=== PATIENT | female | born 1940 | race Caucasian/White ===

== ENCOUNTER 2016-08-23 12:49 | Emergency (ER) | payer MEDICARE, BC ==
[2016-08-23 13:05] VITALS: BP 123/62; PULSE 50; RESP 20; TEMP 98.2
--- NOTE | 2016-08-23 13:28 | ED ---
General Adult HPI - General Chief complaint: Eye Problems Stated complaint: eye issues Time Seen by Provider: 08/23/16 13:10 Source: patient, RN notes reviewed Mode of arrival: ambulatory Limitations: no limitations - History of Present Illness Initial comments: This is a 76-year-old female presents with a rash to the face. Daughter who is also present in the room states that the patient noticed some redness below both eyes for about a week and on , 08/19/2016 the rash got worse and became itchy. Daughter states she took the patient to an urgent care and she is placed on hydrocortisone cream, oral Claritin, tobramycin eyedrops and a course of Keflex. Daughter states she's been taking these things for 5 days but nothing has helped. Patient denies any pain in the eyes or visual changes. Daughter states she has noticed some slight drooping of the lower right eyelid but no facial drooping, dysphagia or weakness. Daughter denies any fevers/chills. Patient denies any headache, sore throat, congestion, otalgia or rhinorrhea. Patient denies any history of autoimmune disorders and denies that this has ever happened to her before. Patient denies any new medications. Patient denies any recent shortness breath, chest pain, abdominal pain, nausea/ vomiting/diarrhea, back pain, numbness, tingling, hematuria, or visual changes , or any other complaints. - Related Data Home Medications Medication Instructions Recorded Confirmed FLUoxetine HCL 40 mg PO DAILY 10/14/14 11/13/15 Levothyroxine Sodium [Synthroid] 88 mcg PO [id number] 10/14/14 11/13/15 [place] Carbonate 300 mg PO DAILY 10/14/14 11/13/15 Atorvastatin [Lipitor] 40 mg PO DAILY 01/06/15 11/13/15 Donepezil [Aricept] 5 mg PO HS 01/06/15 11/13/15 Levothyroxine Sodium [Synthroid] 176 mcg PO ALMANZA 10/30/15 11/13/15 Previous Rx's Medication Instructions Recorded Amoxicillin/Potassium Clav 1 tab PO Q12HR #20 tab 10/30/15 [Augmentin 875-125 Tablet] Cephalexin [Keflex] 500 mg PO Q12HR 7 Days 08/23/16 Loratadine [Claritin] 10 mg PO DAILY 10 Days 08/23/16 Ranitidine HCl [Zantac] 150 mg PO BID 10 Days 08/23/16 predniSONE 40 mg PO DAILY 5 Days 08/23/16 Allergies Allergy/AdvReac Type Severity Reaction Status Date / Time nickel Allergy Rash/Hives Verified 08/23/16 13:05 Review of Systems ROS Statement: Those systems with pertinent positive or pertinent negative responses have been documented in the HPI. ROS Other: All systems not noted in ROS Statement are negative. Past Medical History Past Medical History: Dementia, Hyperlipidemia, Thyroid Disorder History of Any Multi-Drug Resistant Organisms: None Reported Past Surgical History: Back Surgery, Joint Replacement Additional Past Surgical History / Comment(s): knee replacment, ovary removed Past Psychological History: Bipolar Smoking Status: Current every day smoker Past Alcohol Use History: Occasional Past Drug Use History: None Reported General Exam - General Exam Comments Initial Comments: General: The patient is awake and alert, in no distress, and does not appear acutely ill. Eye: There is ectropion to the right lower eyelid. Pupils are equal, round and reactive to light, extra-ocular movements are intact. No nystagmus. There is normal conjunctiva bilaterally. No signs of icterus. Ears: TMs pink and pearly with intact cone of light bilaterally. Normal external ear canals Nose: Nasal turbinates pink and moist Mouth and throat: There are moist mucous membranes and no oral lesions. Neck: The neck is supple, there is no tenderness or JVD. Cardiovascular: There is a regular rate and rhythm. No murmur, rub or gallop is appreciated. Respiratory: Lungs are clear to auscultation, respirations are non-labored, breath sounds are equal. No wheezes, stridor, rales, or rhonchi. Musculoskeletal: Normal ROM, no tenderness. Strength 5/5. Sensation intact. Radial pulses equal bilaterally 2+. Neurological: A&O x 3. CN II-XII intact, There are no obvious motor or sensory deficits. Coordination appears grossly intact. Speech is normal. Skin: There are erythematous, plaque-like areas below the patient's bilateral eyes extending over the bridge of the nose. Skin is warm and dry. Psychiatric: Cooperative, appropriate mood & affect, normal judgment. Limitations: no limitations Course Vital Signs 08/23/16 13:01 Temperature 98.2 F Pulse Rate 50 L Respiratory 20 Rate Blood Pressure 123/62 O2 Sat by Pulse 95 Oximetry Medical Decision Making - Medical Decision Making This is a 76-year-old female presents with a rash to the face. On physical exam patient is well-appearing and afebrile in the EC. There is ectropion to the right lower eyelid. There are erythematous, plaque-like areas below the patient's bilateral eyes extending over the bridge of the nose. I discussed this case with attending physician Dr. Quinones who also examined the patient. I discussed contact dermatitis with the patient and her daughter. I discussed that patient will be put on prednisone 40 mg 5 days, Claritin 10 mg 10 days, Keflex 7 days and Zantac twice a day for 10 days. I discussed the patient should avoid hot water, soaps or any chemicals or lotions on the face. I discussed the patient should follow-up with dermatology. I discussed return parameters. Discussed that patient should follow up with PCP in one to 2 days or return to the EC for any worsening symptoms or for any further concerns. Patient was receptive to this plan and patient will be discharged home. I discussed this case with attending physician Dr. Quinones who agrees the plan as stated above. Disposition Clinical Impression: Contact dermatitis Disposition: HOME SELF-CARE Condition: Good Instructions: Contact Dermatitis (ED) Additional Instructions: Please use prednisone, Keflex, Claritin and Zantac as prescribed. Please avoid hot [place], soaps any other chemicals on the face. Please follow-up with dermatology in the next 1-2 days. Please use medication as discussed. Please follow-up with family doctor in the next 2 days. Please return to emergency room if the symptoms increase or worsen or for any other concerns. Prescriptions: Cephalexin [Keflex] 500 mg PO Q12HR 7 Days Loratadine [Claritin] 10 mg PO DAILY 10 Days Ranitidine HCl [Zantac] 150 mg PO BID 10 Days predniSONE 40 mg PO DAILY 5 Days Referrals: None,Stated [Primary Care Provider] - 1-2 days Yesi Delgado MD [STAFF PHYSICIAN] - 1-2 days Umberto Delgado MD [STAFF PHYSICIAN] - 1-2 days Time of Disposition: 14:09
== END 2016-08-23 14:10 | disposition home or self-care (01) ==
LOC: EC 12:49
DX: L25.9 Unspecified contact dermatitis, unspecified cause (principal); Z91.048 Other nonmedicinal substance allergy status; E78.5 Hyperlipidemia, unspecified; E07.9 Disorder of thyroid, unspecified; F03.90 Unspecified dementia, unspecified severity, without behavioral disturbance, psychotic disturbance, mood disturbance, and anxiety; F31.9 Bipolar disorder, unspecified; F17.200 Nicotine dependence, unspecified, uncomplicated; Z79.899 Other long term (current) drug therapy
CPT/HCPCS: 99283

== ENCOUNTER 2016-11-04 19:25 | Emergency (ER) | payer MEDICARE, BC ==
[2016-11-04 19:42] VITALS: TEMP 98.1
--- NOTE | 2016-11-04 20:56 | ED ---
Extremity Problem HPI - General Chief complaint: Extremity Problem,Nontraumatic Stated complaint: Poss bug bite/Ankle Time Seen by Provider: 11/04/16 20:36 Source: patient Mode of arrival: ambulatory Limitations: no limitations - History of Present Illness Initial comments: Physical 76-year-old female to history of depression and bipolar and hyperlipidemia who presents here department for right lower extremity swelling. The patient states that she did not notice it however when the daughter came over today she noticed a small red lesion on her right ankle and then also swelling although after her knee. The patient denies any history DVT. No recent travel. [facility] her a dose of Rocephin and sent her here for evaluation. The patient denies any shortness of breath or chest pain. She denies any fevers or chills. She denies any other complaints. - Related Data Home Medications Medication Instructions Recorded Confirmed FLUoxetine HCL 40 mg PO DAILY 10/14/14 11/04/16 Levothyroxine Sodium [Synthroid] 88 mcg PO DAILY 10/14/14 11/04/16 [place] Carbonate 300 mg PO DAILY 10/14/14 11/04/16 Atorvastatin [Lipitor] 40 mg PO DAILY 01/06/15 11/04/16 Donepezil [Aricept] 10 mg PO DAILY 11/04/16 11/04/16 Previous Rx's Medication Instructions Recorded Cephalexin [Keflex] 500 mg PO Q12HR #14 cap 11/04/16 Allergies Allergy/AdvReac Type Severity Reaction Status Date / Time nickel Allergy Rash/Hives Verified 11/04/16 20:55 Review of Systems ROS Statement: Those systems with pertinent positive or pertinent negative responses have been documented in the HPI. ROS Other: All systems not noted in ROS Statement are negative. Past Medical History Past Medical History: Dementia, Hyperlipidemia, Thyroid Disorder History of Any Multi-Drug Resistant Organisms: None Reported Past Surgical History: Back Surgery, Joint Replacement Additional Past Surgical History / Comment(s): knee replacment, ovary removed Past Psychological History: Bipolar Smoking Status: Current every day smoker Past Alcohol Use History: Occasional Past Drug Use History: None Reported General Exam - General Exam Comments Initial Comments: Constitutional: Awake alert Appears comfortable Head: Normocephalic atraumatic Eyes: no conjunctival injection No scleral icterus EOMI Neck: No JVD Supple Heart: Regular rate rhythm normal S1-S2 no murmurs Lungs: Clear to auscultation bilaterally No wheezing No rales Abdomen: Soft nondistended nontender Extremities: Pitting edema to the right lower extremity extending up to the knee , left lower extremity is normal, there is an erythematous area to the right lateral ankle with a small very superficial abscess that is spontaneously draining purulent fluid DP pulses intact Radial pulses intact Neuro: A&Ox3 No focal neurologic deficits Psych: Appropriate mood and affect Limitations: no limitations Course Vital Signs 11/04/16 19:38 Temperature 98.1 F Pulse Rate 58 L Respiratory 16 Rate Blood Pressure 122/62 O2 Sat by Pulse 97 Oximetry Medical Decision Making - Medical Decision Making This is a 76-year-old female who presented for right leg swelling and redness. The patient had an Doppler of the lower extremity which did not reveal DVT. She has 5 consistent with a small area of cellulitis with overlying superficial abscess that is spontaneously draining. She will be started on Keflex twice a day and follow-up with her primary doctor. She returned she has worsening symptoms or questions were answered. Disposition Clinical Impression: Cellulitis and abscess of right leg Disposition: HOME SELF-CARE Instructions: Cellulitis (ED) Prescriptions: Cephalexin [Keflex] 500 mg PO Q12HR #14 cap Referrals: Nick Brown MD [Primary Care Provider] - 1-2 days
--- NOTE | 2016-11-04 21:51 | US ---
EXAMINATION TYPE: US venous doppler duplex LE RT DATE OF EXAM: 11/04/2016 9:42 PM COMPARISON: NONE CLINICAL HISTORY: Edema right ankle SIDE PERFORMED: Right TECHNIQUE: The lower extremity deep venous system is examined utilizing real time linear array sonog yifan with graded compression, doppler sonography and color-flow sonography. VESSELS IMAGED: External Iliac Vein (EIV) Common Femoral Vein Deep Femoral Vein Greater Saphenous Vein * Femoral Vein Popliteal Vein Small Saphenous Vein * Proximal Calf Veins (* superficial vessels) Right Leg: Negative for DVT IMPRESSION: No evident deep venous thrombosis at or above the right knee.
[2016-11-04 22:07] VITALS: BP 108/56; PULSE 70; RESP 20
== END 2016-11-04 22:05 | disposition home or self-care (01) ==
LOC: EC 19:25
DX: L03.115 Cellulitis of right lower limb (principal); L02.415 Cutaneous abscess of right lower limb; R60.0 Localized edema; E78.5 Hyperlipidemia, unspecified; E07.9 Disorder of thyroid, unspecified; F31.9 Bipolar disorder, unspecified; F03.90 Unspecified dementia, unspecified severity, without behavioral disturbance, psychotic disturbance, mood disturbance, and anxiety; F17.200 Nicotine dependence, unspecified, uncomplicated; Z79.899 Other long term (current) drug therapy; Z91.09 Other allergy status, other than to drugs and biological substances
CPT/HCPCS: 99283

== ENCOUNTER 2017-08-14 12:17 | Observation (INO) | payer MEDICARE, BC ==
[2017-08-14] MEDS ORDERED: SODIUM CHLORIDE 0.9% 500 ML IV STA (12:36)
[2017-08-14] MEDS ORDERED: DIAZEPAM 5 MG/ML 2 ML INJ IVP STA (12:36)
[2017-08-14] MEDS ORDERED: MECLIZINE 25 MG TAB PO STA (12:36)
--- NOTE | 2017-08-14 12:46 | ED ---
General Adult HPI - General Chief complaint: Dizziness Stated complaint: dizziness Time Seen by Provider: 08/14/17 12:20 Source: patient, EMS, RN notes reviewed Mode of arrival: EMS Limitations: altered mental status - History of Present Illness Initial comments: This is a 77-year-old female who comes in because she was dizzy in the car with her son. Patient doesn't remember the she because of her significant dementia. According to the report patient was so dizzy she had a hold onto the door while in the car. According to the report patient also had some slurred speech which seems to have resolved. She denies headache patient denies any numbness weakness. Patient denies chest pain palpitations difficulty breathing or shortness of breath. Patient denies abdominal pain patient denies nausea vomiting diarrhea. Patient states she has no pain or discomfort now but she does feel off balance and the bed is why she is holding on to the railings - Related Data Home Medications Medication Instructions Recorded Confirmed FLUoxetine HCL 40 mg PO DAILY 10/14/14 08/14/17 [place] Carbonate 300 mg PO DAILY 10/14/14 08/14/17 Atorvastatin [Lipitor] 40 mg PO DAILY 01/06/15 08/14/17 Donepezil [Aricept] 10 mg PO DAILY 11/04/16 08/14/17 Levothyroxine Sodium [Synthroid] 125 mcg PO DAILY 08/14/17 08/14/17 Allergies Allergy/AdvReac Type Severity Reaction Status Date / Time nickel Allergy Rash/Hives Verified 08/14/17 13:28 Review of Systems ROS Statement: Those systems with pertinent positive or pertinent negative responses have been documented in the HPI. ROS Other: All systems not noted in ROS Statement are negative. Past Medical History Past Medical History: Dementia, Hyperlipidemia, Thyroid Disorder History of Any Multi-Drug Resistant Organisms: None Reported Past Surgical History: Back Surgery, Joint Replacement Additional Past Surgical History / Comment(s): knee replacment, ovary removed Past Psychological History: Bipolar Smoking Status: Current every day smoker Past Alcohol Use History: Occasional Past Drug Use History: None Reported General Exam - General Exam Comments Initial Comments: GENERAL: Patient is well-developed and well-nourished. Patient is nontoxic and well- hydrated and is in mild distress. ENT: Neck is soft and supple. No significant lymphadenopathy is noted. Oropharynx is clear. Moist mucous membranes. Neck has full range of motion without eliciting any pain. EYES: The sclera were anicteric and conjunctiva were pink and moist. Extraocular movements were intact and pupils were equal round and reactive to light. Eyelids were unremarkable. PULMONARY: Unlabored respirations. Good breath sounds bilaterally. No audible rales rhonchi or wheezing was noted. CARDIOVASCULAR: There is a regular rate and rhythm without any murmurs gallops or rubs. ABDOMEN: Soft and nontender with normal bowel sounds. SKIN: Skin is clear with no lesions or rashes and otherwise unremarkable. NEUROLOGIC: Patient is alert and oriented 2. Cranial nerves II through XII are grossly intact. Motor and sensory are also intact. Normal speech, volume and content. Symmetrical smile. Cerebellar testing is equal bilaterally MUSCULOSKELETAL: Normal extremities with adequate strength and full range of motion. LYMPHATICS: No significant lymphadenopathy is noted PSYCHIATRIC: Normal psychiatric evaluation. Limitations: altered mental status Course Vital Signs 08/14/17 08/14/17 12:23 13:00 Temperature 98.3 F Pulse Rate 61 55 L Respiratory 20 20 Rate Blood Pressure 136/59 128/60 O2 Sat by Pulse 96 97 Oximetry Medical Decision Making - Medical Decision Making Patient's son arrived and stated that the patient was not having any slurred speech she was having expressive aphasia during this episode. Son states the patient now is speaking clearly. Patient's chest x-ray shows no acute abnormality. Patient's computed tomography scan of the brain shows no acute abnormality. I spoke with Dr. Huffman read to accept admission admitted the patient I ordered MRIs I consult the neurology per her instructions. - Lab Data Result diagrams: 08/14/17 12:22 08/14/17 12:22 Lab Results 08/14/17 08/14/17 08/14/17 Range/Units 12:22 12:22 12:22 WBC 6.6 (3.8-10.6) k/uL RBC 4.85 (3.80-5.40) m/uL Hgb 14.0 (11.4-16.0) gm/dL Hct 44.0 (34.0-46.0) % MCV 90.8 (80.0-100.0) fL MCH 28.9 (25.0-35.0) pg MCHC 31.9 (31.0-37.0) g/dL RDW 13.0 (11.5-15.5) % Plt Count 290 (150-450) k/uL Neutrophils % 65 % Lymphocytes % 26 % Monocytes % 5 % Eosinophils % 3 % Basophils % 1 % Neutrophils # 4.3 (1.3-7.7) k/uL Lymphocytes # 1.7 (1.0-4.8) k/uL Monocytes # 0.3 (0-1.0) k/uL Eosinophils # 0.2 (0-0.7) k/uL Basophils # 0.0 (0-0.2) k/uL PT (9.0-12.0) sec INR (<1.2) APTT (22.0-30.0) sec Sodium 140 (137-145) mmol/L Potassium 4.4 (3.5-5.1) mmol/L Chloride 105 (98-107) mmol/L Carbon Dioxide 24 (22-30) mmol/L Anion Gap 11 mmol/L BUN 20 H (7-17) mg/dL Creatinine 0.60 (0.52-1.04) mg/dL Est GFR (CKD-EPI)AfAm >90 (>60 ml/min/1.73 sqM) Est GFR (CKD-EPI)NonAf 88 (>60 ml/min/1.73 sqM) Glucose 73 L (74-99) mg/dL Calcium 10.0 (8.4-10.2) mg/dL Magnesium 2.1 (1.6-2.3) mg/dL Total Bilirubin 0.7 (0.2-1.3) mg/dL AST 24 (14-36) U/L ALT 29 (9-52) U/L Alkaline Phosphatase 103 (38-126) U/L Total Creatine Kinase 152 H (30-135) U/L CK-MB (CK-2) 3.1 H* (0.0-2.4) ng/mL CK-MB (CK-2) Rel Index 2.0 Troponin I <0.012 (0.000-0.034) ng/mL Total Protein 6.9 (6.3-8.2) g/dL Albumin 4.2 (3.5-5.0) g/dL 08/14/17 Range/Units 12:22 WBC (3.8-10.6) k/uL RBC (3.80-5.40) m/uL Hgb (11.4-16.0) gm/dL Hct (34.0-46.0) % MCV (80.0-100.0) fL MCH (25.0-35.0) pg MCHC (31.0-37.0) g/dL RDW (11.5-15.5) % Plt Count (150-450) k/uL Neutrophils % % Lymphocytes % % Monocytes % % Eosinophils % % Basophils % % Neutrophils # (1.3-7.7) k/uL Lymphocytes # (1.0-4.8) k/uL Monocytes # (0-1.0) k/uL Eosinophils # (0-0.7) k/uL Basophils # (0-0.2) k/uL PT 10.1 (9.0-12.0) sec INR 1.0 (<1.2) APTT 27.2 (22.0-30.0) sec Sodium (137-145) mmol/L Potassium (3.5-5.1) mmol/L Chloride (98-107) mmol/L Carbon Dioxide (22-30) mmol/L Anion Gap mmol/L BUN (7-17) mg/dL Creatinine (0.52-1.04) mg/dL Est GFR (CKD-EPI)AfAm (>60 ml/min/1.73 sqM) Est GFR (CKD-EPI)NonAf (>60 ml/min/1.73 sqM) Glucose (74-99) mg/dL Calcium (8.4-10.2) mg/dL Magnesium (1.6-2.3) mg/dL Total Bilirubin (0.2-1.3) mg/dL AST (14-36) U/L ALT (9-52) U/L Alkaline Phosphatase (38-126) U/L Total Creatine Kinase (30-135) U/L CK-MB (CK-2) (0.0-2.4) ng/mL CK-MB (CK-2) Rel Index Troponin I (0.000-0.034) ng/mL Total Protein (6.3-8.2) g/dL Albumin (3.5-5.0) g/dL Disposition Clinical Impression: TIA (transient ischemic attack), Vertigo Disposition: ADMITTED IP TO THIS HOSP Referrals: Nick Brown MD [Primary Care Provider] - 1-2 days Time of Disposition: 15:09
[2017-08-14 12:51] LABS: Basophils % (A) 1 %; Eosinophils # (A) 0.2 k/uL (0-0.7); Eosinophils % (A) 3 %; Lymphocytes # (A) 1.7 k/uL (1.0-4.8); Lymphocytes % (A) 26 %; MCH 28.9 pg (25.0-35.0); MCHC 31.9 g/dL (31.0-37.0); MCV 90.8 fL (80.0-100.0); Mean Platelet Volume 8.3; Monocytes # (A) 0.3 k/uL (0-1.0); Monocytes % (A) 5 %; Neutrophils # (A) 4.3 k/uL (1.3-7.7); Neutrophils % (A) 65 %; Platelet Count 290 k/uL (150-450); RBC 4.85 m/uL (3.80-5.40); WBC 6.6 k/uL (3.8-10.6)
[2017-08-14 13:01] LABS: Partial Thromboplastin Time 27.2 sec (22.0-30.0); Prothrombin Time 10.1 sec (9.0-12.0)
[2017-08-14 13:02] LABS: ALT 29 U/L (9-52); AST 24 U/L (14-36); Albumin 4.2 g/dL (3.5-5.0); Alkaline Phosphatase 103 U/L (38-126); Anion Gap 11 mmol/L; Blood Urea Nitrogen 20 mg/dL (7-17); Carbon Dioxide 24 mmol/L (22-30); Chloride 105 mmol/L (98-107); Glucose 73 mg/dL (74-99); Magnesium 2.1 mg/dL (1.6-2.3); Potassium 4.4 mmol/L (3.5-5.1); Sodium 140 mmol/L (137-145); Total Bilirubin 0.7 mg/dL (0.2-1.3); Total Protein 6.9 g/dL (6.3-8.2)
[2017-08-14 13:10] LABS: Creatine Kinase 152 U/L (30-135)
[2017-08-14 13:23] LABS: Troponin I <0.012 ng/mL (0.000-0.034)
[2017-08-14 13:25] LABS: Creatine Kinase MB 3.1 ng/mL (0.0-2.4)
--- NOTE | 2017-08-14 14:22 | CT ---
EXAMINATION: CT brain wo con DATE AND TIME: 08/14/2017 1:00 PM ORDERING PROVIDER: Tavon Holman MD CLINICAL INDICATION: Pain TECHNIQUE: Standard departmental protocol. DLP 1027 mGy-cm COMPARISON: 01/06/2015 DESCRIPTION: The calvarium is intact. There is no intracranial hemorrhage. There is no mass or mass e ffect. There is no definite new attenuation defect. Remainder of the intra-axial and extra-axial comp artment examination is unremarkable. The paranasal sinuses, middle ear cavities, and mastoid sinus ai r cells are clear. The orbits are intact. IMPRESSION: NO ACUTE PROCESS.
--- NOTE | 2017-08-14 14:37 | XR ---
EXAMINATION TYPE: XR chest 2V DATE OF EXAM: 08/14/2017 HISTORY: Chest Pain. REFERENCE: Previous study dated 01/06/2015. FINDINGS: The lungs are overinflated. Heart size upper limits of normal. The lungs are clear. Pleural spaces are clear. IMPRESSION: 1. COPD. 2. BORDERLINE CARDIOMEGALY.
[2017-08-14 20:20] VITALS: BMI 25.6
[2017-08-14] MEDS: ASPIRIN 81 MG PO SCH (23:08)
[2017-08-15 02:47] LABS: Cholesterol 162 mg/dL (<200); HDL Cholesterol 57 mg/dL (40-60); LDL Cholesterol,Calculated 65 mg/dL (0-99); Triglycerides 202 mg/dL (<150)
[2017-08-15 04:20] VITALS: RESP 16
[2017-08-15] MEDS ORDERED: LEVOTHYROXINE 125 MCG TAB PO SCH (06:30)
[2017-08-15] MEDS ORDERED: LITHIUM CARBONATE 300 MG CAP PO SCH (09:00)
[2017-08-15] MEDS ORDERED: DONEPEZIL 10 MG TAB PO SCH (09:00)
[2017-08-15] MEDS ORDERED: FLUoxetine HCL 20 MG CAP PO SCH (09:00)
[2017-08-15] MEDS ORDERED: ATORVASTATIN 40 MG TAB PO SCH (09:00)
[2017-08-15] MEDS: ASPIRIN 81 MG PO SCH (11:13)
--- NOTE | 2017-08-15 14:25 | MR ---
EXAMINATION TYPE: MR angio head wo con DATE OF EXAM: 08/15/2017 COMPARISON: NONE HISTORY: TIA TECHNIQUE: Utilizing 3-D [id number] intracranial MRA of the [place] was performed. FINDINGS: The vertebrobasilar and carotid systems are patent. There is no sizable aneurysm or vascular malform ation. Left vertebral artery is dominant. Posterior cerebral arteries originate from the internal ci rculation on the left. IMPRESSION: 1. No evidence of vascular malformation or sizable aneurysm.
--- NOTE | 2017-08-15 14:31 | MR ---
EXAMINATION TYPE: MR brain wo/w con DATE OF EXAM: 08/15/2017 COMPARISON: NONE HISTORY: TIA TECHNIQUE: Multiplanar, multisequence images of the brain and brainstem is performed without and with IV contras t, utilizing 7 mL intravenous Gadavist . FINDINGS: Diffusion weighted images demonstrate no evidence of a recent infarct or other diffusion ab normality. There is moderate generalized degenerative change. Abnormal signal noted in the basal gang nael suggestive of remote lacunar infarct. There is a partially empty sella turcica. There is no midline shift or mass effect. White matter: There is confluent and numerous areas of abnormal signal the white matter. No lesions perpendicular v entricular system. The largest measures 8 mm within the right parietal white matter. No enhancing les ions. Approximately 15 lesions seen. No callosal lesions. IMPRESSION: 1. Degenerative and nonspecific white matter changes most typical remote microvascular ischemia. 2. No evidence of acute ischemia
--- NOTE | 2017-08-15 15:30 | P.CONS ---
History of Present Illness - Reason for Consult Consult date: 08/15/17 TIA - Chief Complaint TIA - History of Present Illness Is a pleasant 77-year-old female being evaluated by the neurology service for possible TIA. She was traveling in with her son in the car and started to become dizzy. She described some lightheadedness and some vertigo. Her son also noticed that her speech was slurred. She denied any recent illness , headache, lateralizing weakness. She was brought to [facility] emergency room. By that time her slurred speech resolved. She remained a little bit off balance. CT of the head showed no acute intracranial abnormalities. MRA of the brain showed no vascular abnormalities. MRI showed nonspecific white matter changes most likely microvascular ischemia. There was no evidence of acute ischemia. Was no evidence of mass. There were no enhancing lesions. It's time my exam she is being transferred to a wheelchair and taken down to have an EEG. A carotid Doppler has also been ordered. She was on no anticoagulation has been started on aspirin 325 mg her triglycerides are 200 to a cholesterol 162 LDL of 65 and HDL of 57. Review of Systems All systems: negative Constitutional: Reports as per HPI Past Medical History Past Medical History: Dementia, Hyperlipidemia, Thyroid Disorder History of Any Multi-Drug Resistant Organisms: None Reported Past Surgical History: Back Surgery, Joint Replacement Additional Past Surgical History / Comment(s): knee replacment, ovary removed Past Anesthesia/Blood Transfusion Reactions: No Reported Reaction Past Psychological History: Bipolar Smoking Status: Current every day smoker Past Alcohol Use History: Occasional Past Drug Use History: None Reported - Past Family History Mother History Unknown: Yes Medications and Allergies Home Medications Medication Instructions Recorded Confirmed Type FLUoxetine HCL 40 mg PO DAILY 10/14/14 08/14/17 History [place] Carbonate 300 mg PO DAILY 10/14/14 08/14/17 History Atorvastatin [Lipitor] 40 mg PO DAILY 01/06/15 08/14/17 History Donepezil [Aricept] 10 mg PO DAILY 11/04/16 08/14/17 History Levothyroxine Sodium [Synthroid] 125 mcg PO DAILY 08/14/17 08/14/17 History Allergies Allergy/AdvReac Type Severity Reaction Status Date / Time nickel Allergy Rash/Hives Verified 08/14/17 13:28 Physical Exam Vitals: Vital Signs Temp Pulse Pulse Resp BP BP Pulse Ox 08/15/17 12:00 98.5 F 54 L 16 141/69 93 L 08/15/17 07:48 98 F 55 L 16 131/73 97 08/15/17 04:00 97.2 F L 56 L 16 154/70 94 L 08/15/17 00:00 96.2 F L 52 L 18 117/55 94 L 08/14/17 20:00 96.8 F L 56 L 18 149/66 95 08/14/17 18:40 98 F 49 L 16 142/66 98 08/14/17 16:30 50 L 16 140/59 98 Intake and Output 08/15/17 08/15/17 08/15/17 06:59 14:59 22:59 Intake Total 600 Balance 600 Intake: Oral 600 Other: Voiding Method Toilet Toilet # Voids 1 1 Weight 66.5 kg - Constitutional General appearance: average body habitus, cooperative, no acute distress - EENT Eyes: no abnormal pupil, EOMI, PERRLA, no ptosis ENT: hearing grossly normal - Neck Neck: normal ROM, no rigidity - Respiratory Respiratory: negative: prolonged expiration, prolonged inspiration - Cardiovascular Rhythm: regular - Gastrointestinal General gastrointestinal: no distended, no tenderness - Neurologic The patient is alert awake and oriented 2. Speech and language are normal. There is no facial asymmetry. Strength is 5 out of 5 in bilateral upper and lower extremities. There is no sensory deficit. No tremors or seizures are seen. Cranial nerves II through XII are intact globally. No gait abnormality. Results CBC & Chem 7: 08/14/17 12:22 08/14/17 12:22 Labs: Abnormal Lab Results - Last 24 Hours (Table) 08/14/17 Range/Units 12:22 Triglycerides 202 H (<150) mg/dL Assessment and Plan (1) Hyperlipidemia Current Visit: Yes Status: Suspected Code(s): E78.5 - HYPERLIPIDEMIA, UNSPECIFIED SNOMED Code(s): 74429023 (2) TIA (transient ischemic attack) Current Visit: Yes Status: Acute Code(s): G45.9 - TRANSIENT CEREBRAL ISCHEMIC ATTACK, UNSPECIFIED SNOMED Code(s): 233320186 (3) Vertigo Current Visit: Yes Status: Resolved Code(s): R42 - DIZZINESS AND GIDDINESS SNOMED Code(s): 179552723 (4) Altered mental status Current Visit: No Status: Resolved Code(s): R41.82 - ALTERED MENTAL STATUS, UNSPECIFIED SNOMED Code(s): 028894213 (5) Dysarthria Current Visit: Yes Status: Resolved Code(s): R47.1 - DYSARTHRIA AND ANARTHRIA SNOMED Code(s): 6142211 (6) Dementia Current Visit: Yes Status: Chronic Code(s): F03.90 - UNSPECIFIED DEMENTIA WITHOUT BEHAVIORAL DISTURBANCE SNOMED Code(s): 64361723 Plan: The patient has suffered a transient ischemic attack. She has no significant lasting effects. Speech therapy will evaluate. She is having no trouble swallowing. Bedside swallowing exam will be performed. She was started on 81 mg of aspirin, 40 mg Lipitor. An EEG and carotid Doppler have yet to be performed. Continue current dose of Aricept for her chronic dementia. Continue fall precautions. Evaluation by physical therapy as ordered. Barring any unforeseen abnormalities on her EEG and carotid Doppler she can be cleared for discharge from a neurological standpoint.
--- NOTE | 2017-08-15 16:00 | P.HPIM ---
History of Present Illness H&P Date: 08/15/17 (This document is supportive H&P and discharge summary) 77 years old female patient of Dr. Ford with past medical history of dementia, hyperlipidemia, thyroid disorder presents in with an episode of lightheadedness and vertigo with some slurring of speech which has resolved patient underwent CT of head which was negative for any acute intracranial abnormality. Patient was admitted for evaluation of TIA. On my evaluation, patient was able to answer questions appropriately slurring of speech. She does not remember the incident states she has short-term memory loss from dementia. Patient has no sensory or motor deficits. No history of seizures. MRI/MRA of the brain was done with no vascular abnormality with some nonspecific white changes suggestive of microvascular ischemia. EEG is ordered which is currently pending. Patient has been initiated on aspirin 81 mg along with Lipitor 40 mg daily. Patient will follow-up with Dr. Amaral as outpatient. Review of Systems Constitutional: Denies chills, Denies fever, Denies lethargy, Denies malaise, Denies poor appetite, Denies weakness, Denies weight loss Eyes: denies decreased vision, denies diplopia, denies discharge, denies pain Ears: Endorses: decreased hearing Ears, nose, mouth and throat: Denies dental pain, Denies headache, Denies nasal discharge, Denies nose pain Cardiovascular: Denies chest pain, Denies decreased exercise tolerance, Denies edema, Denies high blood pressure, Denies irregular heart beat, Denies palpitations, Denies paroxysmal nocturnal dyspnea, Denies rapid heart beat, Denies shortness of breath Respiratory: Denies congestion, Denies cough, Denies cough with sputum, Denies dyspnea, Denies home oxygen, Denies wheezing Gastrointestinal: Denies abdominal pain, Denies change in bowel habits, Denies coffee ground emesis, Denies early satiety, Denies excessive gas, Denies heartburn, Denies hematemesis, Denies hematochezia, Denies loss of appetite, Denies nausea, Denies vomiting Genitourinary: Denies dysuria, Denies flank pain, Denies kidney stones, Denies menorrhagia, Denies urgency, Denies urinary frequency Musculoskeletal: Denies gait dysfunction, Denies limitation of motion, Denies morning stiffness, Denies muscle cramps Integumentary: Denies rash, Denies wounds, Denies brittle nails, Denies change in hair/nails, Denies darkening of skin Neurological: Denies balance difficulties, Denies change in speech, Denies double vision, Denies gait dysfunction, Denies loss of vision, Denies motor disturbance, Denies numbness, Denies paralysis, Denies paresthesias, Denies seizures Psychiatric: Denies anxiety, Denies depression Endocrine: Denies excessive sweating, Denies excessive thirst, Denies high blood sugars, Denies palpitations Hematologic/Lymphatic: Denies easy bruising, Denies lymphadenopathy Past Medical History Past Medical History: Dementia, Hyperlipidemia, Thyroid Disorder History of Any Multi-Drug Resistant Organisms: None Reported Past Surgical History: Back Surgery, Joint Replacement Additional Past Surgical History / Comment(s): knee replacment, ovary removed Past Anesthesia/Blood Transfusion Reactions: No Reported Reaction Past Psychological History: Bipolar Smoking Status: Current every day smoker Past Alcohol Use History: Occasional Past Drug Use History: None Reported - Past Family History Mother History Unknown: Yes Additional Family Medical History / Comment(s): Unable to provide any family history due to severe dementia. States her mother is still living but donot quote her on that Medications and Allergies Home Medications Medication Instructions Recorded Confirmed Type FLUoxetine HCL 40 mg PO DAILY 10/14/14 08/14/17 History [place] Carbonate 300 mg PO DAILY 10/14/14 08/14/17 History Atorvastatin [Lipitor] 40 mg PO DAILY 01/06/15 08/14/17 History Donepezil [Aricept] 10 mg PO DAILY 11/04/16 08/14/17 History Levothyroxine Sodium [Synthroid] 125 mcg PO DAILY 08/14/17 08/14/17 History Aspirin 81 mg PO DAILY #30 chew 08/15/17 Rx Allergies Allergy/AdvReac Type Severity Reaction Status Date / Time nickel Allergy Rash/Hives Verified 08/14/17 13:28 Physical Exam Vitals: Vital Signs Temp Pulse Pulse Resp BP BP Pulse Ox 08/15/17 12:00 98.5 F 54 L 16 141/69 93 L 08/15/17 07:48 98 F 55 L 16 131/73 97 08/15/17 04:00 97.2 F L 56 L 16 154/70 94 L 08/15/17 00:00 96.2 F L 52 L 18 117/55 94 L 08/14/17 20:00 96.8 F L 56 L 18 149/66 95 08/14/17 18:40 98 F 49 L 16 142/66 98 08/14/17 16:30 50 L 16 140/59 98 Intake and Output 08/15/17 08/15/17 08/15/17 06:59 14:59 22:59 Intake Total 600 Balance 600 Intake: Oral 600 Other: Voiding Method Toilet Toilet # Voids 1 1 Weight 66.5 kg - Constitutional General appearance: cooperative, no acute distress, obese - EENT Eyes: anicteric sclerae, PERRLA, normal appearance ENT: hearing grossly normal - Neck Neck: no lymphadenopathy, normal ROM, no other, no rigidity, no stridor, no thyromegaly - Respiratory Respiratory: bilateral: CTA, negative: diminished, dullness, rales, rhonchi - Cardiovascular Rhythm: regular Heart sounds: normal: S1, S2 Abnormal Heart Sounds: no systolic murmur, no diastolic murmur, no rub, no S3 Gallop, no S4 Gallop, no click, no other - Gastrointestinal General gastrointestinal: normal bowel sounds, soft - Integumentary Integumentary: no rash - Neurologic Neurologic: CNII-XII intact, no sensory or motor deficit. Normal proprioception. Romberg test negative. Tandem gait normal - Musculoskeletal Musculoskeletal: gait normal, strength equal bilaterally - Psychiatric Psychiatric: A&O x's 2, appropriate affect Results CBC & Chem 7: 08/14/17 12:22 08/14/17 12:22 Labs: Abnormal Lab Results - Last 24 Hours (Table) 08/14/17 Range/Units 12:22 Triglycerides 202 H (<150) mg/dL Thrombosis Risk Factor Assmnt - Choose All That Apply Each Risk Factor Represents 3 Points: Age 75 years or older Thrombosis Risk Factor Assessment Total Risk Factor Score: 3 Thrombosis Risk Factor Assessment Level: Moderate Risk Assessment and Plan Plan: #1 slurring of speech associated with vertigo secondary to transient attack of MRI/MRA negative. Continue aspirin 81 mg along with Lipitor 40 mg daily. Echo negative. #2 dementia continue Aricept #3 hyperlipidemia continue Lipitor #4 hypothyroidism continue levothyroxine at current dose of 125 g daily #5 bipolar disorder continue lithium and fluoxetine #6 DVT prophylaxis continue SCDs #7 CODE STATUS no code Disposition discharged home with self-care. CC a copy of discharge to Dr. Ford
[2017-08-15 16:23] VITALS: BP 139/64; PULSE 56; TEMP 97.9
--- NOTE | 2017-08-15 18:43 | ECHOF ---
Referral Reason:tia MEASUREMENTS -------- HEIGHT: 157.5 cm WEIGHT: 66.2 kg BP: 131/73 IVSd: 1.6 cm (0.6 - 1.1) LVIDd: 3.4 cm (3.9 - 5.3) LVPWd: 1.2 cm (0.6 - 1.1) IVSs: 1.6 cm LVIDs: 1.6 cm LVPWs: 1.8 cm LAESV Index (A-L): 35.59 ml/m Ao Diam: 2.9 cm (2.0 - 3.7) AV Cusp: 1.5 cm (1.5 - 2.6) LA Diam: 3.2 cm (2.7 - 3.8) MV EXCURSION: 9.371 mm (> 18.000) MV EF SLOPE: 71 mm/s (70 - 150) EPSS: 0.6 cm MV E David: 0.83 m/s MV DecT: 290 ms MV A David: 0.98 m/s MV E/A Ratio: 0.84 RAP: 5.00 mmHg RVSP: 15.50 mmHg FINDINGS -------- Sinus rhythm. This was a technically good study. The left ventricular size is normal. There is mild concentric left ventricular hypertrophy. Overa ll left ventricular systolic function is normal with, an EF between 55 - 60 %. The right ventricle is normal in size and function. LA is moderately dilated 34-39 ml/m2 The right atrium is normal in size. Aortic valve is trileaflet and is mildly thickened. The mitral valve leaflets are mildly thickened. Mild mitral regurgitation is present. Mild tricuspid regurgitation present. The right ventricular systolic pressure, as measured by Doppl er, is 15.50mmHg. Pulmonic valve appears structurally normal. The aortic root size is normal. Normal inferior vena cava with normal inspiratory collapse consistent with estimated right atrial pre ssure of 5 mmHg. The pericardium is normal. CONCLUSIONS -------- 1. Sinus rhythm. 2. This was a technically good study. 3. The left ventricular size is normal. 4. There is mild concentric left ventricular hypertrophy. 5. Overall left ventricular systolic function is normal with, an EF between 55 - 60 %. 6. The right ventricle is normal in size and function. 7. LA is moderately dilated 34-39 ml/m2 8. The right atrium is normal in size. 9. Aortic valve is trileaflet and is mildly thickened. 10. The mitral valve leaflets are mildly thickened. 11. Mild mitral regurgitation is present. 12. Mild tricuspid regurgitation present. 13. The right ventricular systolic pressure, as measured by Doppler, is 15.50mmHg. 14. Pulmonic valve appears structurally normal. 15. The aortic root size is normal. 16. Normal inferior vena cava with normal inspiratory collapse consistent with estimated right atrial pressure of 5 mmHg. 17. The pericardium is normal. PAINTER MIRROR: Sri Zaragoza RDCS
== END 2017-08-15 18:06 | disposition home or self-care (01) ==
LOC: EC 12:17 → 6SEL 15:09
PROVIDERS: ADMIT Internal Medicine; ATTEND Internal Medicine
DX: G45.9 Transient cerebral ischemic attack, unspecified (principal); R47.01 Aphasia; R47.81 Slurred speech; R47.1 Dysarthria and anarthria; R42 Dizziness and giddiness; R41.82 Altered mental status, unspecified; F03.90 Unspecified dementia, unspecified severity, without behavioral disturbance, psychotic disturbance, mood disturbance, and anxiety; E78.5 Hyperlipidemia, unspecified; F31.9 Bipolar disorder, unspecified; E03.9 Hypothyroidism, unspecified; F17.200 Nicotine dependence, unspecified, uncomplicated; Z91.048 Other nonmedicinal substance allergy status; Z79.899 Other long term (current) drug therapy
CPT/HCPCS: 99285; 96361; 96374; 36415; 95819; 93005; 93306; 97161; 92523; 80061; 80053; 82550; 82553; 83735; 84484; 85025; 85610; 85730; 71046; 70450; 70544; 70553; G0378 ×2; J3360; A9581

== ENCOUNTER 2018-06-20 11:55 | Emergency (ER) | payer MEDICARE, BC ==
[2018-06-20] MEDS ORDERED: SODIUM CHLORIDE 0.9% 500 ML 500 ML IV ONE (12:13)
[2018-06-20] MEDS ORDERED: LORazepam 2 MG/ML INJ IV STA (12:22)
[2018-06-20] MEDS ORDERED: diphenhydrAMINE 50 MG/ML 1 ML VIAL IVP STA (12:22)
--- NOTE | 2018-06-20 12:30 | ED ---
General Adult HPI - General Chief complaint: Altered Mental Status Stated complaint: altered mental status Time Seen by Provider: 06/20/18 12:11 Source: patient, family, EMS, RN notes reviewed, old records reviewed Mode of arrival: EMS Limitations: altered mental status - History of Present Illness Initial comments: 78-year-old female presents from assisted living facility with acute change in mental status. Patient is repetitively screaming that she is falling. She was found in the bathroom with these symptoms approximately one and a half hours prior to presentation. Patient does have history of dementia, she has no short- term memory. She is accompanied by her daughter who is able to give history. Patient states she has to go to the bathroom and then progressed she will admit to headache. She does not report any other pain complaints. Patient is diaphoretic, tachycardic. No preceding symptoms. Patient ate breakfast normally. - Related Data Home Medications Medication Instructions Recorded Confirmed FLUoxetine HCL 40 mg PO DAILY 10/14/14 06/20/18 [place] Carbonate 300 mg PO DAILY 10/14/14 06/20/18 Donepezil [Aricept] 10 mg PO DAILY 11/04/16 06/20/18 Levothyroxine Sodium [Synthroid] 125 mcg PO DAILY 08/14/17 06/20/18 Loperamide HCl [Imodium A-D] 4 mg PO DAILY PRN 06/20/18 06/20/18 guaiFENesin-DM 100-10MG/5ML 10 ml PO Q4H PRN 06/20/18 06/20/18 [Robitussin DM] Previous Rx's Medication Instructions Recorded Aspirin 81 mg PO DAILY #30 chew 08/15/17 Allergies Allergy/AdvReac Type Severity Reaction Status Date / Time nickel Allergy Rash/Hives Verified 06/20/18 13:43 Review of Systems ROS Statement: Those systems with pertinent positive or pertinent negative responses have been documented in the HPI. ROS Other: All systems not noted in ROS Statement are negative. Past Medical History Past Medical History: Dementia, Hyperlipidemia, Thyroid Disorder History of Any Multi-Drug Resistant Organisms: None Reported Past Surgical History: Back Surgery, Joint Replacement Additional Past Surgical History / Comment(s): knee replacment, ovary removed Past Anesthesia/Blood Transfusion Reactions: No Reported Reaction Past Psychological History: Bipolar Smoking Status: Current every day smoker Past Alcohol Use History: Occasional Past Drug Use History: None Reported - Past Family History Mother History Unknown: Yes Additional Family Medical History / Comment(s): Unable to provide any family history due to severe dementia. States her mother is still living but donot quote her on that General Exam Limitations: altered mental status General appearance: alert, in distress Head exam: Present: atraumatic, normocephalic Eye exam: Absent: PERRL (Pupils 2 mm bilaterally, sluggish) ENT exam: Present: mucous membranes dry Neck exam: Present: normal inspection. Absent: tenderness, meningismus Respiratory exam: Present: normal lung sounds bilaterally. Absent: respiratory distress Cardiovascular Exam: Present: normal rhythm, tachycardia GI/Abdominal exam: Present: soft. Absent: distended, tenderness, guarding Extremities exam: Present: normal capillary refill, other (Bilateral radial pulses 2+, bilateral DP pulses 2+. Patient is rigid in her lower extremities, does not want to move.) Neurological exam: Present: alert, motor sensory deficit (Rigid bilateral lower extremities in extension with plantar flexion). Absent: oriented X3 Psychiatric exam: Present: anxious Skin exam: Present: warm, diaphoretic, erythema. Absent: cyanosis Course Vital Signs 06/20/18 06/20/18 06/20/18 12:03 12:58 13:44 Pulse Rate 122 H 78 73 Respiratory 20 18 18 Rate Blood Pressure 162/102 115/55 110/56 O2 Sat by Pulse 85 L 94 L Oximetry - Reevaluation(s) Reevaluation #1: 06/20/18 16:22 Reevaluation, patient resting comfortably, neurologic exam remains nonfocal, muscle rigidity is resolved. Vital signs are stable. Her family agreeable with transfer. 06/20/18 16:23 EKG Findings - EKG Comments: EKG Findings:: Normal sinus rhythm, possible inferior infarct, rate of 76, LA interval 184, QRS duration 90, QTC 459, no ST segment elevation Q waves in lead 3 and aVF Medical Decision Making - Medical Decision Making 78-year-old female presenting with confusion, vertigo symptoms and return to ED. Patient has nonfocal neurologic exam, she is moving all extremities symmetrically although both upper and lower extremities are quite rigid on initial evaluation. There is concern for seizure activity. Patient's does receive workup in the emergency department including head CT which is poor quality secondary to motion artifact there is concern for hypodensity in the thalamus, CT angiography is obtained which is negative for acute occlusion or stenosis. Patient has a mildly elevated white blood cell count 15.1, hemoglobin 14.2 stable, normal electrolytes, lactic acid is elevated likely secondary to DJD and possible seizure-like activity. Patient has an elevated troponin at 0.152, there is no complaint of chest pain and EKG shows Q waves in the inferior leads with no definitive signs of acute ischemia. Given the presentation, there is concern for new onset seizure, possible CVA, and elevated troponin suggestive of non-ST segment elevated [place]. Patient loaded with Keppra, given heparin in the emergency department. Case is discussed with the admitting physician Dr. Gonzalez, he is not comfortable with admission given the concern for new onset seizure and possible CVA. Patient will be transferred to [facility], accepting physician Dr. Bazan. Patient will require both neurology and cardiology evaluation. - Lab Data Result diagrams: 06/20/18 12:29 06/20/18 12:29 Lab Results 06/20/18 06/20/18 06/20/18 Range/Units 12:17 12:29 12:29 WBC 15.1 H (3.8-10.6) k/uL RBC 4.80 (3.80-5.40) m/uL Hgb 14.2 (11.4-16.0) gm/dL Hct 43.7 (34.0-46.0) % MCV 91.1 (80.0-100.0) fL MCH 29.5 (25.0-35.0) pg MCHC 32.4 (31.0-37.0) g/dL RDW 13.4 (11.5-15.5) % Plt Count 344 (150-450) k/uL Neutrophils % 85 % Lymphocytes % 10 % Monocytes % 3 % Eosinophils % 1 % Basophils % 0 % Neutrophils # 12.9 H (1.3-7.7) k/uL Lymphocytes # 1.5 (1.0-4.8) k/uL Monocytes # 0.5 (0-1.0) k/uL Eosinophils # 0.1 (0-0.7) k/uL Basophils # 0.0 (0-0.2) k/uL PT (9.0-12.0) sec INR (<1.2) APTT (22.0-30.0) sec Sodium (137-145) mmol/L Potassium (3.5-5.1) mmol/L Chloride (98-107) mmol/L Carbon Dioxide (22-30) mmol/L Anion Gap mmol/L BUN (7-17) mg/dL Creatinine (0.52-1.04) mg/dL Est GFR (CKD-EPI)AfAm (>60 ml/min/1.73 sqM) Est GFR (CKD-EPI)NonAf (>60 ml/min/1.73 sqM) Glucose (74-99) mg/dL POC Glucose (mg/dL) 154 H (75-99) mg/dL POC Glu Head Track Coach ID Elidia Ott Plasma Lactic Acid Ignacio (0.7-2.0) mmol/L Calcium (8.4-10.2) mg/dL Total Bilirubin (0.2-1.3) mg/dL AST (14-36) U/L ALT (9-52) U/L Alkaline Phosphatase (38-126) U/L Total Creatine Kinase 225 H (30-135) U/L CK-MB (CK-2) 5.1 H (0.0-2.4) ng/mL CK-MB (CK-2) Rel Index 2.3 Troponin I 0.152 H* (0.000-0.034) ng/mL Total Protein (6.3-8.2) g/dL Albumin (3.5-5.0) g/dL Urine Color Urine Appearance (Clear) Urine pH (5.0-8.0) Ur Specific [place] (1.001-1.035) Urine Protein (Negative) Urine Glucose (UA) (Negative) Urine Ketones (Negative) Urine Blood (Negative) Urine Nitrite (Negative) Urine Bilirubin (Negative) Urine Urobilinogen (<2.0) mg/dL Ur Leukocyte Esterase (Negative) Urine RBC (0-5) /hpf Urine WBC (0-5) /hpf Hyaline Casts (0-2) /lpf Urine Mucus (None) /hpf Urine Opiates Screen (NotDetected) Ur Oxycodone Screen (NotDetected) Urine Methadone Screen (NotDetected) Ur Propoxyphene Screen (NotDetected) Ur Barbiturates Screen (NotDetected) U Tricyclic Antidepress (NotDetected) Ur Phencyclidine Scrn (NotDetected) Ur Amphetamines Screen (NotDetected) U Methamphetamines Scrn (NotDetected) U Benzodiazepines Scrn (NotDetected) Urine Cocaine Screen (NotDetected) U Marijuana (THC) Screen (NotDetected) 06/20/18 06/20/18 06/20/18 Range/Units 12:29 12:29 12:29 WBC (3.8-10.6) k/uL RBC (3.80-5.40) m/uL Hgb (11.4-16.0) gm/dL Hct (34.0-46.0) % MCV (80.0-100.0) fL MCH (25.0-35.0) pg MCHC (31.0-37.0) g/dL RDW (11.5-15.5) % Plt Count (150-450) k/uL Neutrophils % % Lymphocytes % % Monocytes % % Eosinophils % % Basophils % % Neutrophils # (1.3-7.7) k/uL Lymphocytes # (1.0-4.8) k/uL Monocytes # (0-1.0) k/uL Eosinophils # (0-0.7) k/uL Basophils # (0-0.2) k/uL PT 9.6 (9.0-12.0) sec INR 0.9 (<1.2) APTT 20.5 L (22.0-30.0) sec Sodium 137 (137-145) mmol/L Potassium 5.0 (3.5-5.1) mmol/L Chloride 106 (98-107) mmol/L Carbon Dioxide 20 L (22-30) mmol/L Anion Gap 11 mmol/L BUN 23 H (7-17) mg/dL Creatinine 0.81 (0.52-1.04) mg/dL Est GFR (CKD-EPI)AfAm 80 (>60 ml/min/1.73 sqM) Est GFR (CKD-EPI)NonAf 70 (>60 ml/min/1.73 sqM) Glucose 136 H (74-99) mg/dL POC Glucose (mg/dL) (75-99) mg/dL POC Glu Head Track Coach ID Plasma Lactic Acid Ignacio 3.0 H* (0.7-2.0) mmol/L Calcium 10.3 H (8.4-10.2) mg/dL Total Bilirubin 0.6 (0.2-1.3) mg/dL AST 36 (14-36) U/L ALT 42 (9-52) U/L Alkaline Phosphatase 146 H (38-126) U/L Total Creatine Kinase (30-135) U/L CK-MB (CK-2) (0.0-2.4) ng/mL CK-MB (CK-2) Rel Index Troponin I (0.000-0.034) ng/mL Total Protein 7.1 (6.3-8.2) g/dL Albumin 4.2 (3.5-5.0) g/dL Urine Color Urine Appearance (Clear) Urine pH (5.0-8.0) Ur Specific [place] (1.001-1.035) Urine Protein (Negative) Urine Glucose (UA) (Negative) Urine Ketones (Negative) Urine Blood (Negative) Urine Nitrite (Negative) Urine Bilirubin (Negative) Urine Urobilinogen (<2.0) mg/dL Ur Leukocyte Esterase (Negative) Urine RBC (0-5) /hpf Urine WBC (0-5) /hpf Hyaline Casts (0-2) /lpf Urine Mucus (None) /hpf Urine Opiates Screen (NotDetected) Ur Oxycodone Screen (NotDetected) Urine Methadone Screen (NotDetected) Ur Propoxyphene Screen (NotDetected) Ur Barbiturates Screen (NotDetected) U Tricyclic Antidepress (NotDetected) Ur Phencyclidine Scrn (NotDetected) Ur Amphetamines Screen (NotDetected) U Methamphetamines Scrn (NotDetected) U Benzodiazepines Scrn (NotDetected) Urine Cocaine Screen (NotDetected) U Marijuana (THC) Screen (NotDetected) 06/20/18 Range/Units 13:50 WBC (3.8-10.6) k/uL RBC (3.80-5.40) m/uL Hgb (11.4-16.0) gm/dL Hct (34.0-46.0) % MCV (80.0-100.0) fL MCH (25.0-35.0) pg MCHC (31.0-37.0) g/dL RDW (11.5-15.5) % Plt Count (150-450) k/uL Neutrophils % % Lymphocytes % % Monocytes % % Eosinophils % % Basophils % % Neutrophils # (1.3-7.7) k/uL Lymphocytes # (1.0-4.8) k/uL Monocytes # (0-1.0) k/uL Eosinophils # (0-0.7) k/uL Basophils # (0-0.2) k/uL PT (9.0-12.0) sec INR (<1.2) APTT (22.0-30.0) sec Sodium (137-145) mmol/L Potassium (3.5-5.1) mmol/L Chloride (98-107) mmol/L Carbon Dioxide (22-30) mmol/L Anion Gap mmol/L BUN (7-17) mg/dL Creatinine (0.52-1.04) mg/dL Est GFR (CKD-EPI)AfAm (>60 ml/min/1.73 sqM) Est GFR (CKD-EPI)NonAf (>60 ml/min/1.73 sqM) Glucose (74-99) mg/dL POC Glucose (mg/dL) (75-99) mg/dL POC Glu Head Track Coach ID Plasma Lactic Acid Ignacio (0.7-2.0) mmol/L Calcium (8.4-10.2) mg/dL Total Bilirubin (0.2-1.3) mg/dL AST (14-36) U/L ALT (9-52) U/L Alkaline Phosphatase (38-126) U/L Total Creatine Kinase (30-135) U/L CK-MB (CK-2) (0.0-2.4) ng/mL CK-MB (CK-2) Rel Index Troponin I (0.000-0.034) ng/mL Total Protein (6.3-8.2) g/dL Albumin (3.5-5.0) g/dL Urine Color Yellow Urine Appearance Clear (Clear) Urine pH 5.5 (5.0-8.0) Ur Specific [place] 1.019 (1.001-1.035) Urine Protein 1+ H (Negative) Urine Glucose (UA) Negative (Negative) Urine Ketones Negative (Negative) Urine Blood Negative (Negative) Urine Nitrite Negative (Negative) Urine Bilirubin Negative (Negative) Urine Urobilinogen 2.0 (<2.0) mg/dL Ur Leukocyte Esterase Negative (Negative) Urine RBC 1 (0-5) /hpf Urine WBC 1 (0-5) /hpf Hyaline Casts 7 H (0-2) /lpf Urine Mucus Few H (None) /hpf Urine Opiates Screen Not Detected (NotDetected) Ur Oxycodone Screen Not Detected (NotDetected) Urine Methadone Screen Not Detected (NotDetected) Ur Propoxyphene Screen Not Detected (NotDetected) Ur Barbiturates Screen Not Detected (NotDetected) U Tricyclic Antidepress Not Detected (NotDetected) Ur Phencyclidine Scrn Not Detected (NotDetected) Ur Amphetamines Screen Not Detected (NotDetected) U Methamphetamines Scrn Not Detected (NotDetected) U Benzodiazepines Scrn Detected H (NotDetected) Urine Cocaine Screen Not Detected (NotDetected) U Marijuana (THC) Screen Not Detected (NotDetected) Disposition Clinical Impression: Altered mental status, New onset seizure, NSTEMI (non-ST elevated myocardial infarction) Disposition: OTHER INSTITUTION NOT DEFINED Condition: Stable Is patient prescribed a controlled substance at d/c from ED?: No Referrals: Nick Brown MD [Primary Care Provider] - 1-2 days Time of Disposition: 16:23 - Out of Hospital Transfer - Req. Specs Out of Hospital Transfer - Requested Specifics: Other Emergency Center ( Transferred to [facility])
[2018-06-20 12:37] LABS: Glucose,Whole Blood 154 mg/dL (75-99)
[2018-06-20 12:59] VITALS: RESP 18
--- NOTE | 2018-06-20 13:03 | CT ---
EXAMINATION TYPE: CT brain wo con DATE OF EXAM: 06/20/2018 COMPARISON: 08/14/2017 HISTORY: mental status changes CT DLP: 1244.4 mGycm Automated exposure control for dose reduction was used. FINDINGS: There is extensive artifact with hyperdensity seen overlying the posterior fossa and portions of the occipital lobes greater on the right. This limits assessment for hemorrhage but is felt to be artifac tual. No obvious midline shift or mass effect. Generalized degenerative changes noted with a greater frontal lobe distribution there is low-attenuat ion within the white matter bilaterally which is nonspecific but appear similar to the prior study an d likely in the basis of remote ischemic change. There is a small less than 1 cm hypodensity within t he right thalamus. Hypodensity within the basal ganglia appears chronic. Compatible with small remote lacunar infarct. IMPRESSION: 1. MARKEDLY LIMITED EXAM DUE TO SEVERE ARTIFACT WHICH LIMITS ASSESSMENT FOR ACUTE HEMORRHAGE. NO OBVI OUS MIDLINE SHIFT OR MASS EFFECT. 2. DEGENERATIVE AND NONSPECIFIC WHITE MATTER CHANGES MOST TYPICAL OF REMOTE ISCHEMIA. 3. INDETERMINATE HYPODENSITY WITHIN THE RIGHT THALAMUS. CANNOT EXCLUDE AN ACUTE OR SUBACUTE SMALL INF ARCT. CORRELATE WITH MRI CLINICALLY WARRANTED.
[2018-06-20] MEDS ORDERED: ASPIRIN 325 MG TAB PO STA (13:16)
[2018-06-20 13:22] LABS: Basophils % (A) 0 %; Eosinophils # (A) 0.1 k/uL (0-0.7); Eosinophils % (A) 1 %; HCT 43.7 % (34.0-46.0); HGB 14.2 gm/dL (11.4-16.0); Lymphocytes # (A) 1.5 k/uL (1.0-4.8); Lymphocytes % (A) 10 %; MCH 29.5 pg (25.0-35.0); MCHC 32.4 g/dL (31.0-37.0); MCV 91.1 fL (80.0-100.0); Mean Platelet Volume 7.4; Monocytes # (A) 0.5 k/uL (0-1.0); Monocytes % (A) 3 %; Neutrophils # (A) 12.9 k/uL (1.3-7.7); Neutrophils % (A) 85 %; Platelet Count 344 k/uL (150-450); RDW 13.4 % (11.5-15.5); WBC 15.1 k/uL (3.8-10.6)
[2018-06-20 13:33] LABS: Albumin 4.2 g/dL (3.5-5.0); Calcium 10.3 mg/dL (8.4-10.2); Total Bilirubin 0.6 mg/dL (0.2-1.3); Total Protein 7.1 g/dL (6.3-8.2)
[2018-06-20 13:38] LABS: INR 0.9 (<1.2); Prothrombin Time 9.6 sec (9.0-12.0)
[2018-06-20 13:39] LABS: Partial Thromboplastin Time 20.5 sec (22.0-30.0)
[2018-06-20] MEDS ORDERED: SODIUM CHLORIDE 0.9% 1,000 ML IV ONE (14:09)
[2018-06-20 14:14] LABS: Creatine Kinase MB 5.1 ng/mL (0.0-2.4)
[2018-06-20 14:15] LABS: Troponin I 0.152 ng/mL (0.000-0.034)
[2018-06-20 14:21] LABS: Appearance,Urine Clear (Clear); Bilirubin,Urine Negative (Negative); Blood,Urine Negative (Negative); Color,Urine Yellow; Glucose,Urine (UA) Negative (Negative); Hyaline Casts,Urine 7 /lpf (0-2); Ketones,Urine Negative (Negative); Leukocyte Esterase,Urine Negative (Negative); Mucus,Urine Few /hpf; Nitrite,Urine Negative (Negative); PH, Urine 5.5 (5.0-8.0); Protein,Urine 1+ (Negative); RBC,Urine 1 /hpf (0-5); Specific Gravity,Urine 1.019 (1.001-1.035); WBC,Urine 1 /hpf (0-5)
[2018-06-20 14:29] LABS: Amphetamine Screen,Urine Not Detected (NotDetected); Barbiturate Screen,Urine Not Detected (NotDetected); Benzodiazepines Screen,Urine Detected (NotDetected); Cocaine Screen,Urine Not Detected (NotDetected); Methadone Screen, Urine Not Detected (NotDetected); Opiate Screen,Urine Not Detected (NotDetected); Oxycodone Screen, Urine Not Detected (NotDetected); Phencyclidine Screen,Urine Not Detected (NotDetected); Tricyclic Antidepressant,Urine Not Detected (NotDetected); Urn Cannabinoid Scrn Not Detected (NotDetected)
--- NOTE | 2018-06-20 14:53 | CT ---
EXAMINATION TYPE: CT angio head neck DATE OF EXAM: 06/20/2018 COMPARISON: None HISTORY: Decreased mental status CT DLP: 407.1 mGycm CONTRAST: Performed with IV Contrast, patient injected with 65 mL of Isovue 370. Combination Contrast CTA cervical carotids and [place] CTA cervical carotids with 3-D recons truction Contrast CTA of the cervical carotids was performed 3-D reconstruction imaging obtained at a separate workstation. Right carotid system: Mild plaque is seen of the right common carotid artery. There is mild plaque a lso noted at the carotid bulb and proximal ICA. No significant diameter reduction. ECA is patent. Right vertebral artery appears unremarkable. Left carotid system: Mild plaque is seen of the left common carotid artery. There is mild plaque als o noted at the carotid bulb and proximal ICA. No significant diameter reduction. ECA is patent. Lef t vertebral artery appears unremarkable. IMPRESSION: 1. No significant diameter reduction to account for the patient's symptoms. CTA [place] with 3-D reconstruction Contrast CTA of the [place] of [place] was performed 3-D reconstruction imaging obtained at a separate workstation. Vertebrobasilar system as well as intracranial portions of the internal carotid arteries and their ma derick tributaries are patent. I do not see evidence for sizable aneurysm or vascular malformation. Pl ease note MRI provides greater sensitivity and specificity. Visualized brain appears grossly unremar kable. IMPRESSION: 1. No significant abnormality.
--- NOTE | 2018-06-20 15:37 | XR ---
EXAMINATION TYPE: XR chest 2V DATE OF EXAM: 06/20/2018 COMPARISON: Chest x-ray August 14, 2017 HISTORY: Pain confusion and weakness. TECHNIQUE: Frontal and lateral views of the chest are obtained. FINDINGS: Slightly elevated right hemidiaphragm is redemonstrated. There is chronic parenchymal scott ge without suspicious new focal air space opacity, pleural effusion, or pneumothorax seen. The cardi ac silhouette size is mildly enlarged with atherosclerotic aorta. The osseous structures remain dem ineralized. IMPRESSION: Cardiomegaly and chronic changes without acute pulmonary process.
[2018-06-20] MEDS ORDERED: HEPARIN SODIUM,PORCINE 5,000 UNIT/ML 1 ML VIAL IV ONE (15:49)
[2018-06-20] MEDS ORDERED: HEPARIN SODIUM,PORCINE 5,000 UNIT/ML 1 ML VIAL IV PRN (15:49)
[2018-06-20] MEDS ORDERED: levETIRAcetam IV 1,000 MG in SALINE 1 100ML.BAG IVPB STA (15:52)
[2018-06-20] MEDS ORDERED: HEPARIN SOD,PORK IN 0.45% NACL 25,000 UNIT in 0.45% NACL 1 250ML.BAG IV SCH (16:00)
[2018-06-20 17:50] VITALS: BP 128/66; PULSE 72; TEMP 98.2
== END 2018-06-20 17:50 | disposition short-term general hospital (02) ==
LOC: EC 11:55
DX: I21.4 Non-ST elevation (NSTEMI) myocardial infarction (principal); R56.9 Unspecified convulsions; R41.82 Altered mental status, unspecified; D72.829 Elevated white blood cell count, unspecified; R74.0 Nonspecific elevation of levels of transaminase and lactic acid dehydrogenase [LDH]; F03.90 Unspecified dementia, unspecified severity, without behavioral disturbance, psychotic disturbance, mood disturbance, and anxiety; E07.9 Disorder of thyroid, unspecified; F17.200 Nicotine dependence, unspecified, uncomplicated; Z79.890 Hormone replacement therapy; Z79.899 Other long term (current) drug therapy; Z91.048 Other nonmedicinal substance allergy status
CPT/HCPCS: 99285; 96365 ×2; 96375 ×2; 96376; 96361 ×4; 36415; 93005; 80053; 82550; 82553; 83605; 84484; 85025; 85610; 85730; 81001; 80306; 71046; 70496; 70450; 70498; J2060; J1200; J1644 ×2; J1953; Q9967

== ENCOUNTER 2019-05-07 22:54 | Emergency (ER) | payer MEDICARE, BC ==
[2019-05-07 23:02] VITALS: TEMP 98
--- NOTE | 2019-05-08 00:25 | XR ---
EXAMINATION TYPE: XR pelvis AP view DATE OF EXAM: 05/08/2019 COMPARISON: NONE HISTORY: Fall. Pain. TECHNIQUE: Single view FINDINGS: Pelvic ring is intact. Proximal femurs and hip joints are intact. There is no dislocation. Sacroiliac joints appear intact. IMPRESSION: No acute abnormality of the pelvis. No fracture seen.
--- NOTE | 2019-05-08 00:37 | XR ---
EXAMINATION TYPE: XR tibia fibula RT DATE OF EXAM: 05/08/2019 COMPARISON: NONE HISTORY: Pain TECHNIQUE: 4 views FINDINGS: There is narrowing of the medial joint space of the knee. There is lateral tibial subluxati on. There is soft tissue swelling of the lower leg. Ankle mortise is anatomic. I see no fracture nor dislocation. IMPRESSION: Soft tissue swelling. No fracture. Moderate osteoarthritis of the knee.
--- NOTE | 2019-05-08 00:39 | XR ---
EXAMINATION TYPE: XR chest 1V DATE OF EXAM: 05/08/2019 COMPARISON: 06/20/2018 HISTORY: Pain. TECHNIQUE: Single view FINDINGS: There is no heart failure nor confluent pneumonic infiltrate. Costophrenic angles are clear . There is minimal subsegmental atelectasis left lower lobe. Thoracic aorta is atheromatous. IMPRESSION: Mild subsegmental atelectasis. No heart failure. No change.
--- NOTE | 2019-05-08 00:41 | CT ---
EXAMINATION TYPE: CT brain haley[place] wo con DATE OF EXAM: 05/08/2019 COMPARISON: CT brain 06/20/2018 HISTORY: fall CT DLP: 824.3 mGycm Automated exposure control for dose reduction was used. There is some cerebral cortical atrophy. There is no mass effect nor midline shift. There is no sign of intracranial hemorrhage. Calvarium is intact. Skull base appears intact. Cervical vertebra show some mild subluxation at C3-4 and C4-5 of 3 to 4 mm. There is disc space narro wing at C5-6 and C6-7 with spur formation. Facet joints are intact. There is no evidence of a fractur e. IMPRESSION: Cerebral atrophy. No acute intracranial abnormality. No change compared to old exam. Spondylotic changes in the lower cervical spine. Mild degenerative subluxation at C3-4 and C4-5. No f racture.
--- NOTE | 2019-05-08 00:45 | CT ---
EXAMINATION TYPE: CT facial bones wo con DATE OF EXAM: 05/08/2019 COMPARISON: None HISTORY: fall pain CT DLP: 434.8 mGycm Automated exposure control for dose reduction was used. The mandibular ring appears intact. Temporomandibular joints are intact. There is osteoarthritis at t he temporomandibular joints. Zygomatic arches are intact. Nasal bone appears intact. Maxilla is intac t. There is fairly normal aeration of the paranasal sinuses. I see no bony destructive process. There is no evidence of orbital mass. There is no evidence of a blowout fracture. There is normal aeration of the mastoid sinuses. IMPRESSION: Negative CT scan of the facial bones. No fracture.
--- NOTE | 2019-05-08 01:03 | ED ---
Fall HPI - General Chief Complaint: Fall Stated Complaint: Fall Source: EMS Mode of arrival: EMS - History of Present Illness Initial Comments: The patient is an 7-year-old female with past history of dementia who presents emergency department after she sustained an unwitnessed fall at home. The patient does reside in her own apartment. Staff did enter into the patient's apartment to find her on the floor. She was complaining of any pain. They did transfer her to our emergency department for evaluation. Son is at bedside and states the patient does have frequent falls. She denies any current headaches or visual changes. No neck pain or stiffness. Denies any chest pain shortness of breath. The patient was ambulatory without difficulty. Denies any back or flank pain. She does have ecchymosis noted over her right tib-fib however denies any pain. The remainder of the HPI is limited because the patient's accelerated dementia - Related Data Home Medications Medication Instructions Recorded Confirmed FLUoxetine HCL 40 mg PO DAILY 10/14/14 06/20/18 [place] Carbonate 300 mg PO DAILY 10/14/14 06/20/18 Donepezil [Aricept] 10 mg PO DAILY 11/04/16 06/20/18 Levothyroxine Sodium [Synthroid] 125 mcg PO DAILY 08/14/17 06/20/18 Loperamide HCl [Imodium A-D] 4 mg PO DAILY PRN 06/20/18 06/20/18 guaiFENesin-DM 100-10MG/5ML 10 ml PO Q4H PRN 06/20/18 06/20/18 [Robitussin DM] Previous Rx's Medication Instructions Recorded Aspirin 81 mg PO DAILY #30 chew 08/15/17 Allergies Allergy/AdvReac Type Severity Reaction Status Date / Time nickel Allergy Rash/Hives Verified 06/20/18 13:43 Review of Systems ROS Statement: Those systems with pertinent positive or pertinent negative responses have been documented in the HPI. ROS Other: All systems not noted in ROS Statement are negative. Past Medical History Past Medical History: Dementia, Hyperlipidemia, Thyroid Disorder History of Any Multi-Drug Resistant Organisms: None Reported Past Surgical History: Back Surgery, Joint Replacement Additional Past Surgical History / Comment(s): knee replacment, ovary removed Past Anesthesia/Blood Transfusion Reactions: No Reported Reaction Past Psychological History: Bipolar Smoking Status: Current every day smoker Past Alcohol Use History: Occasional Past Drug Use History: None Reported - Past Family History Mother History Unknown: Yes Additional Family Medical History / Comment(s): Unable to provide any family history due to severe dementia. States her mother is still living but donot quote her on that General Exam Limitations: altered mental status Course Vital Signs 05/07/19 05/08/19 22:55 01:27 Temperature 98.0 F Pulse Rate 102 H 70 Respiratory 20 16 Rate Blood Pressure 143/79 103/60 O2 Sat by Pulse 100 100 Oximetry Medical Decision Making - Medical Decision Making Upon arrival the patient was placed into room 13. Her history of physical exam is performed. As the patient did sustain an unwitnessed fall I did discuss with the son performing a workup for possible syncope. The patient's son refused. I did recommend a CT of the patient's brain and cervical spine as well as a chest and pelvic x-ray. I will also x-ray the patient's right tib-fib because of her ecchymosis. The son did agree to this. Imaging demonstrates no acute fractures. There is some soft tissue swelling of the right tib-fib. The p atient is able to get up and a bili without difficulty. Son is requesting to take her home. She needs help with her primary care doctor in 2-4 days. Return to the emergency room for any new worsening symptoms. The patient and her son were in agreement with the treatment plan she was discharged home in stable condition Disposition Clinical Impression: Fall, Dementia Disposition: HOME SELF-CARE Condition: Stable Instructions (If sedation given, give patient instructions): Fall Prevention for Older Adults (ED) Additional Instructions: Please follow up with your primary care doctor in 2-4 days. Return to the emergency room for any new or worsening symptoms Is patient prescribed a controlled substance at d/c from ED?: No Referrals: Nick Brown MD [Primary Care Provider] - 1-2 days Time of Disposition: 01:03
[2019-05-08 01:29] VITALS: BP 103/60; PULSE 70; RESP 16
== END 2019-05-08 01:29 | disposition home or self-care (01) ==
LOC: EC 22:54
DX: F03.90 Unspecified dementia, unspecified severity, without behavioral disturbance, psychotic disturbance, mood disturbance, and anxiety (principal); S80.11XA Contusion of right lower leg, initial encounter; F31.9 Bipolar disorder, unspecified; E07.9 Disorder of thyroid, unspecified; F17.200 Nicotine dependence, unspecified, uncomplicated; Z96.659 Presence of unspecified artificial knee joint; W19.XXXA Unspecified fall, initial encounter
CPT/HCPCS: 70450; 70486; 71045; 72125; 72170; 99284

== ENCOUNTER 2020-03-05 14:15 | Inpatient (IN) | payer MEDICARE, BC ==
[2020-03-05] MEDS ORDERED: methylPREDNISolone SOD SUCCI 125 MG/2 ML VIAL IV STA (15:02)
[2020-03-05] MEDS ORDERED: IPRATROPIUM-ALBUTEROL 3 ML NEB INHALATION STA (15:02)
[2020-03-05] MEDS ORDERED: SODIUM CHLORIDE 0.9% 1,000 ML IV STA ×2 (15:02)
[2020-03-05 15:22] LABS: Basophils % (A) 1 %; Eosinophils # (A) 0.3 k/uL (0-0.7); Eosinophils % (A) 4 %; HCT 43.6 % (34.0-46.0); HGB 14.2 gm/dL (11.4-16.0); Lymphocytes # (A) 2.1 k/uL (1.0-4.8); Lymphocytes % (A) 26 %; MCH 30.4 pg (25.0-35.0); MCHC 32.5 g/dL (31.0-37.0); MCV 93.5 fL (80.0-100.0); Mean Platelet Volume 6.9; Monocytes # (A) 0.4 k/uL (0-1.0); Monocytes % (A) 5 %; Neutrophils # (A) 5.2 k/uL (1.3-7.7); Neutrophils % (A) 64 %; Platelet Count 352 k/uL (150-450); RBC 4.67 m/uL (3.80-5.40); WBC 8.1 k/uL (3.8-10.6)
--- NOTE | 2020-03-05 15:27 | ED ---
General Adult HPI <Andrew Liu - Last Filed: 03/05/20 16:49> - General Source: patient, RN notes reviewed, old records reviewed Mode of arrival: wheelchair Limitations: no limitations <Dory Elkins - Last Filed: 03/05/20 17:09> - General Chief complaint: Upper Respiratory Infection Stated complaint: cough, congestion Time Seen by Provider: 03/05/20 14:41 - History of Present Illness Initial comments: Patient is a 80-year-old female with history of dementia. She presents emergency department today with 1 week of cough and shortness of breath wheezing. Patient had a visit with her primary care doctor on telemetry medicine who informed her to come to the ER for further evaluation. Patient has had no recorded fevers or chills. She is pleasantly demented. Patient's daughter is here with parents stating no change in significant mental status at this time. (Dory Elkins) - Related Data Home Medications Medication Instructions Recorded Confirmed FLUoxetine HCL 40 mg PO DAILY@0810/14/14 03/05/20 Donepezil [Aricept] 10 mg PO HS@199911/04/16 03/05/20 Loperamide HCl [Imodium A-D] 2 - 4 mg PO QID PRN 06/20/18 03/05/20 guaiFENesin-DM 100-10MG/5ML 10 ml PO Q4H PRN 06/20/18 03/05/20 [Robitussin DM] Aspirin EC [Ecotrin] 325 mg PO DAILY@0800 03/05/20 03/05/20 Levothyroxine Sodium 112 mcg PO DAILY@0803/05/20 03/05/20 [place] Carbonate 300mg Tablet 300 mg PO DAILY@0800 03/05/20 03/05/20 Metoprolol Tartrate [Lopressor] 25 mg PO BID@799,199903/05/20 03/05/20 Allergies Allergy/AdvReac Type Severity Reaction Status Date / Time nickel Allergy Rash/Hives Verified 03/05/20 16:29 Review of Systems ROS Other: All systems not noted in ROS Statement are negative. <Andrew Liu - Last Filed: 03/05/20 16:49> ROS Other: All systems not noted in ROS Statement are negative. <Dory Elkins - Last Filed: 03/05/20 17:09> ROS Statement: Those systems with pertinent positive or pertinent negative responses have been documented in the HPI. Past Medical History Past Medical History: Dementia, Hyperlipidemia, Thyroid Disorder History of Any Multi-Drug Resistant Organisms: None Reported Past Surgical History: Back Surgery, Joint Replacement Additional Past Surgical History / Comment(s): knee replacment, ovary removed Past Anesthesia/Blood Transfusion Reactions: No Reported Reaction Past Psychological History: Bipolar Smoking Status: Never smoker Past Alcohol Use History: Occasional Past Drug Use History: None Reported - Past Family History Mother History Unknown: Yes Additional Family Medical History / Comment(s): Unable to provide any family history due to severe dementia. States her mother is still living but donot quote her on that <Dory Elkins - Last Filed: 03/05/20 17:09> General Exam Limitations: no limitations General appearance: alert, in no apparent distress Head exam: Present: atraumatic, normocephalic, normal inspection Eye exam: Present: normal appearance, PERRL, EOMI. Absent: scleral icterus, conjunctival injection, periorbital swelling ENT exam: Present: normal exam, mucous membranes moist Neck exam: Present: normal inspection. Absent: tenderness, meningismus, lymphadenopathy Respiratory exam: Present: wheezes, rales, other. Absent: normal lung sounds bilaterally, respiratory distress, rhonchi, stridor Cardiovascular Exam: Present: regular rate, normal rhythm GI/Abdominal exam: Present: soft, normal bowel sounds. Absent: distended, tenderness, guarding, rebound, rigid Extremities exam: Present: normal inspection, full ROM, normal capillary refill. Absent: tenderness, pedal edema, joint swelling, calf tenderness Back exam: Present: normal inspection Neurological exam: Present: alert, oriented X3, CN II-XII intact Psychiatric exam: Present: normal affect, normal mood Skin exam: Present: warm, dry, intact, normal color. Absent: rash <Dory Elkins - Last Filed: 03/05/20 17:09> - General Exam Comments Initial Comments: 80-year-old female. Alert and oriented. No distress. is demented. Pleasant. (Dory Elkins) Course Vital Signs 03/05/20 03/05/20 03/05/20 14:19 14:51 15:50 Temperature 97.9 F Pulse Rate 50 L 51 L Respiratory 18 18 16 Rate Blood Pressure 113/65 O2 Sat by Pulse 94 L Oximetry 03/05/20 15:58 Temperature Pulse Rate 46 L Respiratory 18 Rate Blood Pressure O2 Sat by Pulse Oximetry EKG Findings - EKG Comments: EKG Findings:: EKG shows sinus bradycardia, possible inferior infarct age undetermined. Patient read. Abnormal EKG. Ventricular rate of 48 beats were minute period. It was 196 ms. Prescription 76 ms. QT QTc is 460/410 ms. <Dory Elkins - Last Filed: 03/05/20 17:09> Medical Decision Making - Lab Data Result diagrams: 03/05/20 15:08 03/05/20 15:08 <Andrew Liu - Last Filed: 03/05/20 16:49> - Lab Data Result diagrams: 03/05/20 15:08 03/05/20 15:08 - Radiology Data Radiology results: report reviewed <Dory Elkins - Last Filed: 03/05/20 17:09> - Medical Decision Making Patient reexamined and reevaluated by myself, Dr. Liu. Patient resting comfortably in bed. Significant rales, especially left lower lobe. I do agree with PA findings. This includes diagnostic interpretation and treatment plan. Case was discussed in detail with Dr. Gonzalez, who will admit covering for Dr. Brown. He would like an nebulized treatments and pulmonary consult and treatment for pneumonia. (Andrew Liu) 80-year-old female lives at assisted living facility presents with cough congestion shortness of breath for the past week. Chest x-ray shows evidence of left lower lobe developing pneumonia. Labs reviewed and unremarkable. Patient's chest for a status and history of dementia and comorbidities discussed admission. Asians daughter is agreeable to this plan. Patient's case discussed with Dr. Liu and discussed with Dr. Gonzalez. (Dory Elkins) - Lab Data Lab Results 03/05/20 03/05/20 03/05/20 Range/Units 15:08 15:08 15:08 WBC 8.1 (3.8-10.6) k/uL RBC 4.67 (3.80-5.40) m/uL Hgb 14.2 (11.4-16.0) gm/dL Hct 43.6 (34.0-46.0) % MCV 93.5 (80.0-100.0) fL MCH 30.4 (25.0-35.0) pg MCHC 32.5 (31.0-37.0) g/dL RDW 13.0 (11.5-15.5) % Plt Count 352 (150-450) k/uL Neutrophils % 64 % Lymphocytes % 26 % Monocytes % 5 % Eosinophils % 4 % Basophils % 1 % Neutrophils # 5.2 (1.3-7.7) k/uL Lymphocytes # 2.1 (1.0-4.8) k/uL Monocytes # 0.4 (0-1.0) k/uL Eosinophils # 0.3 (0-0.7) k/uL Basophils # 0.0 (0-0.2) k/uL PT 9.8 (9.0-12.0) sec INR 0.9 (<1.2) APTT 27.4 (22.0-30.0) sec Sodium 138 (137-145) mmol/L Potassium 4.8 (3.5-5.1) mmol/L Chloride 106 (98-107) mmol/L Carbon Dioxide 27 (22-30) mmol/L Anion Gap 5 mmol/L BUN 25 H (7-17) mg/dL Creatinine 0.78 (0.52-1.04) mg/dL Est GFR (CKD-EPI)AfAm 83 (>60 ml/min/1.73 sqM) Est GFR (CKD-EPI)NonAf 72 (>60 ml/min/1.73 sqM) Glucose 88 (74-99) mg/dL Plasma Lactic Acid Ignacio (0.7-2.0) mmol/L Calcium 9.9 (8.4-10.2) mg/dL Magnesium 2.2 (1.6-2.3) mg/dL Total Bilirubin 0.5 (0.2-1.3) mg/dL AST 23 (14-36) U/L ALT 11 (4-34) U/L Alkaline Phosphatase 102 (38-126) U/L Troponin I (0.000-0.034) ng/mL Total Protein 7.5 (6.3-8.2) g/dL Albumin 4.1 (3.5-5.0) g/dL 10/14/20 10/14/20 Range/Units 15:08 15:08 WBC (3.8-10.6) k/uL RBC (3.80-5.40) m/uL Hgb (11.4-16.0) gm/dL Hct (34.0-46.0) % MCV (80.0-100.0) fL MCH (25.0-35.0) pg MCHC (31.0-37.0) g/dL RDW (11.5-15.5) % Plt Count (150-450) k/uL Neutrophils % % Lymphocytes % % Monocytes % % Eosinophils % % Basophils % % Neutrophils # (1.3-7.7) k/uL Lymphocytes # (1.0-4.8) k/uL Monocytes # (0-1.0) k/uL Eosinophils # (0-0.7) k/uL Basophils # (0-0.2) k/uL PT (9.0-12.0) sec INR (<1.2) APTT (22.0-30.0) sec Sodium (137-145) mmol/L Potassium (3.5-5.1) mmol/L Chloride (98-107) mmol/L Carbon Dioxide (22-30) mmol/L Anion Gap mmol/L BUN (7-17) mg/dL Creatinine (0.52-1.04) mg/dL Est GFR (CKD-EPI)AfAm (>60 ml/min/1.73 sqM) Est GFR (CKD-EPI)NonAf (>60 ml/min/1.73 sqM) Glucose (74-99) mg/dL Plasma Lactic Acid Ignacio 1.6 (0.7-2.0) mmol/L Calcium (8.4-10.2) mg/dL Magnesium (1.6-2.3) mg/dL Total Bilirubin (0.2-1.3) mg/dL AST (14-36) U/L ALT (4-34) U/L Alkaline Phosphatase (38-126) U/L Troponin I <0.012 (0.000-0.034) ng/mL Total Protein (6.3-8.2) g/dL Albumin (3.5-5.0) g/dL - Radiology Data Left basilar infiltrate or atelectasis seen. Correlate clinically. repeat Studies advised. (Dory Elkins) Disposition <Andrew Liu - Last Filed: 03/05/20 16:49> Is patient prescribed a controlled substance at d/c from ED?: No Time of Disposition: 17:09 <Dory Elkins - Last Filed: 03/05/20 17:09> Clinical Impression: Pneumonia Disposition: ADMITTED IP TO THIS HOSP Condition: Stable Referrals: Nick Brown MD [Primary Care Provider] - 1-2 days
[2020-03-05 15:35] LABS: INR 0.9 (<1.2); Partial Thromboplastin Time 27.4 sec (22.0-30.0); Prothrombin Time 9.8 sec (9.0-12.0)
[2020-03-05 15:38] LABS: Albumin 4.1 g/dL (3.5-5.0); Calcium 9.9 mg/dL (8.4-10.2); Magnesium 2.2 mg/dL (1.6-2.3); Potassium 4.8 mmol/L (3.5-5.1); Total Bilirubin 0.5 mg/dL (0.2-1.3); Total Protein 7.5 g/dL (6.3-8.2)
--- NOTE | 2020-03-05 16:13 | XR ---
EXAMINATION TYPE: XR chest 2V DATE OF EXAM: 03/05/2020 COMPARISON: 05/08/2019 HISTORY: Shortness of breath TECHNIQUE: Frontal and lateral views of the chest are obtained. FINDINGS: Scattered senescent parenchymal changes noted. Hyperinflation compatible with COPD. Left basilar infiltrate or atelectasis seen. Correlate clinically and progress studies are advised. Heart size is stable. Mediastinal structures are stable and grossly unremarkable. No evidence for hilar prominence. Degenerative changes dorsal spine. IMPRESSION: 1. Left basilar infiltrate or atelectasis seen. Correlate clinically and progress studies are advised .
[2020-03-05] MEDS ORDERED: AZITHROMYCIN 500 MG in SODIUM CHLORIDE 0.9% 250 ML IVPB STA ×2 (17:08→17:10)
[2020-03-05] MEDS ORDERED: cefTRIAXone IN SWFI 1,000 MG/10 ML SYRINGE IVP STA (17:08)
[2020-03-05] MEDS ORDERED: PNEUMONIA PROTOCOL UTILIZED 1 EACH MISC PO PRN (17:10)
[2020-03-05] MEDS ORDERED: IPRATROPIUM-ALBUTEROL 3 ML NEB INHALATION PRN (17:10)
[2020-03-05] MEDS ORDERED: LOPERAMIDE 2 MG CAP PO PRN (21:02)
[2020-03-05] MEDS ORDERED: guaiFENesin-DM 100-10MG/5ML 10 ML CUP PO PRN (21:02)
--- NOTE | 2020-03-05 21:46 | P.HPIM ---
History of Present Illness H&P Date: 03/05/20 Chief Complaint: Severe dyspnea and shortness of breath, left lower lobe pne umonia, dementia 80-year-old female one of Dr. Ford patient with past medical history of worsening dementia, hyperlipidemia and hypothyroidism or currently has been living in [facility] with assisted living place developed to have worsening cough and worsening shortness of breath for the last 2 weeks with low-grade temperature and chills. Patient had virtual visit with Dr. Ford today and the conclusion was to go to demurs department because of hypoxia and symptom are not improving with outpatient treatment. Patient ended up coming to the emergency department at [facility] her chest x-ray showed left lower lobe pneumonia, patient pulse ox was reasonable continue having significant shortness of breath with inspiratory expiratory wheezes started on O2 along with updraft treatment and IV antibiotics patient will be admitted to the hospital. Review of Systems CONSTITUTIONAL: Well-developed no acute respiratory distress. EYES: No icterus sclerae, no conjunctivitis. EARS, NOSE, MOUTH, THROAT, and FACE: No sore throat, lymphadenopathy, carotid bruits or deformity. RESPIRATORY: Positive dyspnea and shortness of breath. CARDIOVASCULAR: No CP, Palpitation, PND, Orthopnea, or angina. GASTROINTESTINAL: No Abd pain, Nausea or vomiting, no Diarrhea or constipation, No GI Bleed, no distention or masses. GENITOURINARY: Worsening incontinence with no UTI. INTEGUMENT/BREAST: Negative for any muscular injury with mild osteoarthritis.. HEMATOLOGIC/LYMPHATIC: Negative for bleed or purpura. MUSCULOSKELTAL: Negative for Myalgia or arthralgia. NEURLOGICAL: Significant dementia and abnormal balancing gait. BEHAVIORAL/PSYCH: Negative. ENDOCRINE: Negative. Past Medical History Past Medical History: Dementia, Hyperlipidemia, Thyroid Disorder History of Any Multi-Drug Resistant Organisms: None Reported Past Surgical History: Back Surgery, Joint Replacement Additional Past Surgical History / Comment(s): knee replacment, ovary removed Past Anesthesia/Blood Transfusion Reactions: No Reported Reaction Past Psychological History: Bipolar Smoking Status: Former smoker Past Alcohol Use History: None Reported Past Drug Use History: None Reported - Past Family History Mother History Unknown: Yes Additional Family Medical History / Comment(s): Unable to provide any family history due to severe dementia. States her mother is still living but donot quote her on that Medications and Allergies Home Medications Medication Instructions Recorded Confirmed Type FLUoxetine HCL 40 mg PO DAILY@0800 10/14/14 03/05/20 History Donepezil [Aricept] 10 mg PO HS@199911/04/16 03/05/20 History Loperamide HCl [Imodium A-D] 2 - 4 mg PO QID PRN 06/20/18 03/05/20 History guaiFENesin-DM 100-10MG/5ML 10 ml PO Q4H PRN 06/20/18 03/05/20 History [Robitussin DM] Aspirin EC [Ecotrin] 325 mg PO DAILY@0800 03/05/20 03/05/20 History Levothyroxine Sodium 112 mcg PO DAILY@0800 03/05/20 03/05/20 History [place] Carbonate 300mg Tablet 300 mg PO DAILY@0803/05/20 03/05/20 History Metoprolol Tartrate [Lopressor] 25 mg PO BID@08,199903/05/20 03/05/20 History Allergies Allergy/AdvReac Type Severity Reaction Status Date / Time nickel Allergy Rash/Hives Verified 03/05/20 16:29 Physical Exam Vitals: Vital Signs Temp Pulse Pulse Resp BP BP Pulse Ox 03/05/20 21:24 98.7 F 58 L 96/56 93 L 03/05/20 20:35 97.9 F 53 L 18 118/56 95 03/05/20 17:28 53 L 18 118/56 95 03/05/20 15:58 46 L 18 03/05/20 15:50 51 L 16 03/05/20 14:51 18 03/05/20 14:19 97.9 F 50 L 18 113/65 94 L Intake and Output 03/05/20 03/05/20 03/05/20 06:59 14:59 22:59 Other: # Voids 1 Weight 65.771 kg 65.771 kg General Appearance: Alert, cooperative, no distress, appears stated age. Neck HEENT: Supple, no lymphadenopathy, no thyroid enlargement, no carotid bruits. Lungs: Decreased breath some bilaterally with fine rhonchi mild crackles in the left base with mild expiratory wheezes. Chest Wall: Decrease expansion with deep inspiration no tenderness and no deformity was found on exam, no costochondral pain or discomfort. Heart: Regular rate and rhythm, S1, S2 normal, no murmur, rub or gallop. Back: Symmetric, no curvature, ROM normal, no CVA tenderness. Mild scoliosis Abdomen: Soft, non-tender, bowel sounds active all four quadrants, no masses, no organomegaly. Extremities: Extremities normal, atraumatic, no cyanosis or edema. Pulses: 2+ and symmetric. Skin: Skin color, texture, tugor normal, no rashes or lesions. Neurologic: Alert oriented with significant confusion cranial nerves II through XII intact, no motor deficit, no abnormal balance or gait. Severe advanced dementia with worsening memory loss. Results CBC & Chem 7: 03/05/20 15:08 03/05/20 15:08 Labs: Abnormal Lab Results - Last 24 Hours (Table) 03/05/20 Range/Units 15:08 BUN 25 H (7-17) mg/dL Thrombosis Risk Factor Assmnt - DVT/VTE Prophylaxis DVT/VTE Prophylaxis: Pharmacologic Prophylaxis ordered, Mechanical Prophylaxis ordered - Choose All That Apply Each Factor Represents 1 point: Obesity (BMI >25) Each Risk Factor Represents 3 Points: Age 75 years or older Thrombosis Risk Factor Assessment Total Risk Factor Score: 4 Thrombosis Risk Factor Assessment Level: Moderate Risk Assessment and Plan Assessment: 1 severe dyspnea and shortness of breath with mild respiratory distress: Patient be continuing O2 along with antibiotic and updraft treatment continue to watch patient hemodynamic status. 2 left lower lobe pneumonia: With patient's condition patient could have aspiration pneumonia patient was started on azithromycin we'll add Rocephin 1 g daily from now on continue O2 and continue updraft treatment sputum for Gram stain and culture be done and see the improvement over the next 48 hours as an inpatient. 3 reactive airway with significant wheezes: Patient will be on DuoNeb and O2. 4 dementia: Patient has been on Aricept and Namenda continue medication. 5 Hypothyroidism: Patient remain on levothyroxine 112 g daily. 6 chronic depression: On fluoxetine. 7 hypertension: Remain on metoprolol 25 g twice a day. 8 mild behavioral problem with depression: Remain on lithium 3 in the milligrams daily. 9 hyperglycemia: Accu-Chek with sliding scales coverage will be done. 10 GI prophylaxis: Patient was started on Pepcid. 11 DVT prophylaxis: Heparin 5000 units subcu twice a day will be done. CODE STATUS: Full code. Admit patient to inpatient service for more than 2 night stay.
[2020-03-06 06:55] LABS: Glucose,Whole Blood 96 mg/dL (75-99)
[2020-03-06] MEDS: LEVOTHYROXINE 112 MCG TAB PO SCH ×2 (08:11→08:19)
[2020-03-06] MEDS: METOPROLOL TARTRATE 25 MG TAB PO SCH ×3 (08:11→20:14)
[2020-03-06] MEDS: FLUoxetine HCL 20 MG CAP PO SCH ×2 (08:11→08:19)
[2020-03-06] MEDS: FAMOTIDINE 20 MG TAB PO SCH ×2 (08:12→08:19)
[2020-03-06] MEDS: ASPIRIN 325 MG TAB PO SCH ×2 (08:12→08:19)
[2020-03-06] MEDS: HEPARIN SODIUM,PORCINE 5,000 UNIT/ML 1 ML VIAL SQ SCH ×2 (08:12→20:14)
[2020-03-06] MEDS: LITHIUM CARBONATE 300 MG CAP PO SCH ×2 (08:12→08:19)
--- NOTE | 2020-03-06 11:13 | P.PN ---
Subjective Progress Note Date: 03/06/20 HISTORY OF PRESENT ILLNESS 80-year-old female one of Dr. Ford patient with past medical history of worsening dementia, hyperlipidemia and hypothyroidism or currently has been living in [facility] with assisted living place developed to have worsening cough and worsening shortness of breath for the last 2 weeks with low-grade temperature and chills. Patient had virtual visit with Dr. Brown today and the conclusion was to go to emergency department because of hypoxia and symptom are not improving with outpatient treatment. Patient ended up coming to the emergency department at [facility] her chest x-ray showed left lower lobe pneumonia, patient pulse ox was reasonable continue having significant shortness of breath with inspiratory expiratory wheezes started on O2 along with updraft treatment and IV antibiotics patient will be admitted to the hospital. 03/06: Patient has been afebrile, heart rate 55, blood pressure 105/60, pulse ox 93% on room air. Covid 19 testing in progress. Blood culture is status received, sputum culture unable to be obtained. Patient is continued on IV antibiotics and nebulizer treatments. Repeat chest x-ray has been completed by report is pending. Consult is in place with pulmonary medicine. Patient is in a very good mood today which is her baseline. She states she is feeling better from yesterday. She states she slept well last night. REVIEW OF SYSTEMS CONSTITUTIONAL: Well-developed no acute respiratory distress. No fever. EYES: No icterus sclerae, no conjunctivitis. EARS, NOSE, MOUTH, THROAT, and FACE: No sore throat, lymphadenopathy, carotid bruits or deformity. RESPIRATORY: Positive dyspnea and shortness of breath. CARDIOVASCULAR: No CP, Palpitation, PND, Orthopnea, or angina. GASTROINTESTINAL: No Abd pain, Nausea or vomiting, no Diarrhea or constipation, No GI Bleed, no distention or masses. GENITOURINARY: Worsening incontinence with no UTI. INTEGUMENT/BREAST: Negative for any muscular injury with mild osteoarthritis.. HEMATOLOGIC/LYMPHATIC: Negative for bleed or purpura. MUSCULOSKELTAL: Negative for Myalgia or arthralgia. NEURLOGICAL: Significant dementia and abnormal balancing gait. BEHAVIORAL/PSYCH: Negative. ENDOCRINE: Negative. PHYSICAL EXAMINATION General Appearance: Alert, cooperative, no distress, appears stated age. Neck HEENT: Supple, no lymphadenopathy, no thyroid enlargement, no carotid bruits. Lungs: Decreased breath some bilaterally with fine rhonchi mild crackles in the left base with mild expiratory wheezes. Chest Wall: Decrease expansion with deep inspiration no tenderness and no deformity was found on exam, no costochondral pain or discomfort. Heart: Regular rate and rhythm, S1, S2 normal, no murmur, rub or gallop. Back: Symmetric, no curvature, ROM normal, no CVA tenderness. Mild scoliosis Abdomen: Soft, non-tender, bowel sounds active all four quadrants, no masses, no organomegaly. Extremities: Extremities normal, atraumatic, no cyanosis or edema. Pulses: 2+ and symmetric. Skin: Skin color, texture, tugor normal, no rashes or lesions. Neurologic: Alert oriented with confusion cranial nerves II through XII intact, no motor deficit, no abnormal balance or gait. Severe advanced dementia with worsening memory loss. ASSESSMENT AND PLAN 1 severe dyspnea and shortness of breath with mild respiratory distress without acute respiratory failure secondary to pneumonia. Continue azithromycin, ceftriaxone, DuoNeb treatments as needed, pulmonary consult. COVID-19 testing. Blood culture is status received. Repeat chest x-ray. 2 left lower lobe pneumonia. Continue IV azathioprine myosin, IV Rocephin. 3 reactive airway with significant wheezes: Patient will be on DuoNeb. 4 dementia: Patient has been on Aricept and Namenda continue medication. 5 Hypothyroidism: Patient remain on levothyroxine 112 g daily. 6 chronic depression: On fluoxetine. 7 hypertension: Remain on metoprolol 25 g twice a day. 8 mild behavioral problem with depression: Remain on lithium 3 in the milligrams daily. 9 GI prophylaxis: Patient was started on Pepcid. 10 DVT prophylaxis: Heparin 5000 units subcu twice a day will be done. CODE STATUS: Full code. DISCHARGE PLAN To be determined. PT and OT consults. Impression and plan of care have been directed as dictated by the signing physician. Rose Marie Card nurse practitioner acting as scribe for signing physician. Objective - Vital Signs Vital signs: Vital Signs Temp 98.5 F 03/06/20 00:44 Pulse 55 L 03/06/20 00:44 Resp 18 03/05/20 23:43 BP 105/60 03/06/20 00:44 Pulse Ox 93 L 03/06/20 00:44 Intake & Output 03/05/20 03/06/20 03/06/20 18:59 06:59 18:59 Weight 65.771 kg 65.771 kg Other: # Voids 1 - Labs CBC & Chem 7: 03/05/20 15:08 03/05/20 15:08 Labs: Abnormal Lab Results - Last 24 Hours (Table) 03/05/20 Range/Units 15:08 BUN 25 H (7-17) mg/dL
[2020-03-06 11:45] LABS: Glucose,Whole Blood 80 mg/dL (75-99)
--- NOTE | 2020-03-06 11:48 | XR ---
EXAMINATION TYPE: XR chest 2V DATE OF EXAM: 03/06/2020 COMPARISON: 03/05/2020 INDICATION: Pneumonia TECHNIQUE: Frontal and lateral views of the chest are obtained. FINDINGS: The heart size is normal. The pulmonary vasculature is normal. Mild lingular infiltrate may be present. There is an increased AP diameter, stable from comparison IMPRESSION: 1. Clinical correlation for lingular atelectasis or pneumonia.
[2020-03-06] MEDS ORDERED: AZITHROMYCIN 500 MG in SODIUM CHLORIDE 0.9% 250 ML IVPB SCH (12:00)
--- NOTE | 2020-03-06 13:31 | P.CNPUL ---
History of Present Illness Consult date: 03/06/20 Requesting physician: Edgardo Gonzalez Reason for consult: dyspnea, cough Chief complaint: Dyspnea, cough, wheezing History of present illness: 80-year-old female patient of Dr. Brown, is a resident of [facility], who is a very poor historian, very hard of hearing and has advanced dementia, hyperlipidemia, lifetime nonsmoker, osteoarthritis, who presented to the hospital for evaluation of 1 week history of cough, shortness of breath and wheezing. Patient had a virtual visit with her primary care provider via telemedicine, and was advised to come to the ER for further evaluation. Patient has no recorded history of fevers or chills. According to the chart patient's daughter denied any significant change in mental status. Vital signs were stable. Chest x-ray showed left basilar infiltrate or atelectasis. From a pulse ox was 94-95%, patient has been afebrile, hemodynamically stable, breathing is nonlabored. Patient was started on empiric antibiotics in the form of azithromycin and Rocephin for possibility of pneumonia, he was given a dose of IV steroids, placed on bronchodilators. Labs showed unremarkable CBC, anticoagulation profile was within normal limits, electrolytes were within normal limits, BUN was 25, creatinine was 0.78, LFTs were within normal limits, lactic acid was 1.6. Troponin is less than 0.012. Patient has remained afebrile, vital signs have been stable, she is also being checked for possibility of COVID 19 infection. Follow-up chest x-ray was obtained showing lingular atelectasis or pneumonia, but clinically patient shows no signs of pneumonia, she's been afebrile, she's had no cough, no phlegm production, no chest pain, lung sounds are clear. Review of Systems All systems: negative Constitutional: Denies chills, Denies fever Eyes: denies blurred vision, denies pain Ears, nose, mouth and throat: Denies headache, Denies sore throat Cardiovascular: Denies chest pain, Denies shortness of breath Respiratory: Reports cough, Reports dyspnea Gastrointestinal: Denies abdominal pain, Denies diarrhea, Denies nausea, Denies vomiting Genitourinary: Denies dysuria, Denies hematuria Musculoskeletal: Denies myalgias Integumentary: Denies pruritus, Denies rash Neurological: Denies numbness, Denies weakness Psychiatric: Denies anxiety, Denies depression Endocrine: Denies fatigue, Denies weight change Past Medical History Past Medical History: Dementia, Hyperlipidemia, Thyroid Disorder History of Any Multi-Drug Resistant Organisms: None Reported Past Surgical History: Back Surgery, Joint Replacement Additional Past Surgical History / Comment(s): knee replacment, ovary removed Past Anesthesia/Blood Transfusion Reactions: No Reported Reaction Past Psychological History: Bipolar Smoking Status: Former smoker Past Alcohol Use History: None Reported Past Drug Use History: None Reported - Past Family History Mother History Unknown: Yes Additional Family Medical History / Comment(s): Unable to provide any family history due to severe dementia. States her mother is still living but donot quote her on that Medications and Allergies Home Medications Medication Instructions Recorded Confirmed Type FLUoxetine HCL 40 mg PO DAILY@0810/14/14 03/05/20 History Donepezil [Aricept] 10 mg PO HS@199911/04/16 03/05/20 History Loperamide HCl [Imodium A-D] 2 - 4 mg PO QID PRN 06/20/18 03/05/20 History guaiFENesin-DM 100-10MG/5ML 10 ml PO Q4H PRN 06/20/18 03/05/20 History [Robitussin DM] Aspirin EC [Ecotrin] 325 mg PO DAILY@0800 03/05/20 03/05/20 History Levothyroxine Sodium 112 mcg PO DAILY@0800 03/05/20 03/05/20 History [place] Carbonate 300mg Tablet 300 mg PO DAILY@0800 03/05/20 03/05/20 History Metoprolol Tartrate [Lopressor] 25 mg PO BID@08,199903/05/20 03/05/20 History Allergies Allergy/AdvReac Type Severity Reaction Status Date / Time nickel Allergy Rash/Hives Verified 03/05/20 16:29 Physical Exam Vitals: Vital Signs Temp Pulse Pulse Resp BP BP Pulse Ox 03/06/20 07:31 98.2 F 50 L 17 134/73 91 L 03/06/20 00:44 98.5 F 55 L 105/60 93 L 03/05/20 23:43 58 L 18 03/05/20 21:24 98.7 F 58 L 96/56 93 L 03/05/20 20:35 97.9 F 53 L 18 118/56 95 03/05/20 17:28 53 L 18 118/56 95 03/05/20 15:58 46 L 18 03/05/20 15:50 51 L 16 03/05/20 14:51 18 03/05/20 14:19 97.9 F 50 L 18 113/65 94 L Intake and Output 03/05/20 03/06/20 03/06/20 22:59 06:59 14:59 Other: # Voids 1 1 3 Weight 65.771 kg GENERAL EXAM: Alert, very pleasantly confused, hard of hearing, 80-year-old w joel female, resting in the recliner, on room air, with a pulse ox of 95%, comfortable in no apparent distress. HEAD: Normocephalic/atraumatic. EYES: Normal reaction of pupils, equal size. Conjunctiva pink, sclera white. NOSE: Clear with pink turbinates. THROAT: No erythema or exudates. NECK: No masses, no JVD, no thyroid enlargement, no adenopathy. CHEST: No chest wall deformity. Symmetrical expansion. LUNGS: Equal air entry with no crackles, wheeze, rhonchi or dullness. CVS: Regular rate and rhythm, normal S1 and S2, no gallops, no murmurs, no rubs ABDOMEN: Soft, nontender. No hepatosplenomegaly, normal bowel sounds, no guarding or rigidity. EXTREMITIES: No clubbing, no edema, no cyanosis, 2+ pulses and upper and lower extremities. MUSCULOSKELETAL: Muscle strength and tone normal. SPINE: No scoliosis or deformity SKIN: No rashes CENTRAL NERVOUS SYSTEM: Alert and oriented -1. Confused, No focal deficits, tone is normal in all 4 extremities. Results - Laboratory Findings CBC and BMP: 03/05/20 15:08 03/05/20 15:08 PT/INR, D-dimer PT 9.8 sec (9.0-12.0) 03/05/20 15:08 INR 0.9 (<1.2) 03/05/20 15:08 Abnormal lab findings: Abnormal Labs 03/05/20 15:08 BUN 25 H - Diagnostic Findings Chest x-ray: report reviewed, image reviewed Assessment and Plan Plan: Assessment: #1. Dyspnea, possibly related to possibility of community acquired pneumonia, chest x-ray showing left lower lobe infiltrate/atelectasis, send the pro- calcitonin level, doubt possibility of pneumonia patient is covered with a combination of azithromycin and Rocephin #2. Advanced dementia, recently progressed #3. Hyperlipidemia #4. Difficulty hearing #5. Hypothyroidism #6. Never smoker #7. Osteoarthritis Plan: Continue vent antibiotics, clinical patient is stable, we will send the pro- calcitonin level, chest x-rays were reviewed, showing left lower lobe infiltrate/atelectasis, clinically patient is afebrile, breathing comfortably, no cough no chest pain, no phlegm production. She could be considered for discharge back to the [facility] home on oral antibiotics. We'll continue to follow I performed a history & physical examination of the patient and discussed their management with my nurse practitioner, Nora Rodriguez. I reviewed the nurse practitioner's note and agree with the documented findings and plan of care. Lung sounds are positive for diminished and clear breath sounds. The findings and the impression was discussed with the patient. I attest to the documentation by the nurse practitioner. Time with Patient: Greater than 30
[2020-03-06 14:24] VITALS: BMI 26.5
[2020-03-06 16:51] LABS: Glucose,Whole Blood 85 mg/dL (75-99)
[2020-03-06] MEDS ORDERED: DONEPEZIL 10 MG TAB PO SCH (20:00)
[2020-03-06] MEDS: CEFDINIR 300 MG CAP PO SCH (20:18)
[2020-03-07 08:08] VITALS: BP 152/74; PULSE 47; RESP 14; TEMP 97.6
[2020-03-07] MEDS ORDERED: AZITHROMYCIN 250 MG TAB PO SCH (09:00)
[2020-03-07] MEDS: HEPARIN SODIUM,PORCINE 5,000 UNIT/ML 1 ML VIAL SQ SCH (09:12)
[2020-03-07] MEDS: CEFDINIR 300 MG CAP PO SCH (09:12)
[2020-03-07] MEDS: LITHIUM CARBONATE 300 MG CAP PO SCH (09:12)
[2020-03-07] MEDS: ASPIRIN 325 MG TAB PO SCH (09:12)
[2020-03-07] MEDS: FLUoxetine HCL 20 MG CAP PO SCH (09:12)
[2020-03-07] MEDS: LEVOTHYROXINE 112 MCG TAB PO SCH (09:12)
[2020-03-07] MEDS: FAMOTIDINE 20 MG TAB PO SCH (09:12)
[2020-03-07] MEDS: METOPROLOL TARTRATE 25 MG TAB PO SCH (09:13)
--- NOTE | 2020-03-07 12:34 | P.PN ---
Subjective Progress Note Date: 03/07/20 Principal diagnosis: Dyspnea, cough, wheezing 80-year-old female patient of Dr. Brown, is a resident of [facility], who is a very poor historian, very hard of hearing and has advanced dementia, hyperlipidemia, lifetime nonsmoker, osteoarthritis, who presented to the [facility] for evaluation of 1 week history of cough, shortness of breath and wheezing. Patient had a virtual visit with her primary care provider via telemedicine, and was advised to come to the ER for further evaluation. Patient has no recorded history of fevers or chills. According to the chart patient's daughter denied any significant change in mental status. Vital signs were stable. Chest x-ray showed left basilar infiltrate or atelectasis. From a pulse ox was 94-95%, patient has been afebrile, hemodynamically stable, breathing is nonlabored. Patient was started on empiric antibiotics in the form of azithromycin and Rocephin for possibility of pneumonia, he was given a dose of IV steroids, placed on bronchodilators. Labs showed unremarkable CBC, anticoagulation profile was within normal limits, electrolytes were within normal limits, BUN was 25, creatinine was 0.78, LFTs were within normal limits, lactic acid was 1.6. Troponin is less than 0.012. Patient has remained afebril e, vital signs have been stable, she is also being checked for possibility of COVID 19 infection. Follow-up chest x-ray was obtained showing lingular atelectasis or pneumonia, but clinically patient shows no signs of pneumonia, she's been afebrile, she's had no cough, no phlegm production, no chest pain, lung sounds are clear. On 03/07/2020 patient seen in follow-up on medical surgical floor. She is sitting up in the recliner, she is in no acute distress, occasional cough, with no phlegm production, room air pulse ox of 95%, she's been afebrile, he does have some exertional dyspnea, but no signs of respiratory distress. Her pro- calcitonin level came back negative at 0.02 ruling out possibility of pneumonia, or coronal virus PCR was negative. Patient continues on oral azithromycin, and her Rocephin was transitioned to oral Omnicef. She's been stable overnight, no acute events. Blood culture has shown no growth. Objective - Vital Signs Vital signs: Vital Signs Temp 97.6 F 03/07/20 07:33 Pulse 47 L 03/07/20 07:33 Resp 14 03/07/20 07:33 BP 152/74 03/07/20 07:33 Pulse Ox 95 03/07/20 07:33 Intake & Output 03/06/20 03/07/20 03/07/20 18:59 06:59 18:59 Intake Total 300 Balance 300 Weight 65.771 kg Intake: Intake, IV Titration 0 Amount Sodium Chloride 0.9% 1, 0 000 ml @ 130 mls/hr IV . Q7H42M STA Rx#:[id number] Oral 300 Other: Voiding Method Toilet Incontinent # Voids 3 2 1 - Exam GENERAL EXAM: Alert, very pleasantly confused, hard of hearing, 80-year-old white female, resting in the recliner, on room air, with a pulse ox of 95%, comfortable in no apparent distress. HEAD: Normocephalic/atraumatic. EYES: Normal reaction of pupils, equal size. Conjunctiva pink, sclera white. NOSE: Clear with pink turbinates. THROAT: No erythema or exudates. NECK: No masses, no JVD, no thyroid enlargement, no adenopathy. CHEST: No chest wall deformity. Symmetrical expansion. LUNGS: Equal air entry with no crackles, wheeze, rhonchi or dullness. CVS: Regular rate and rhythm, normal S1 and S2, no gallops, no murmurs, no rubs ABDOMEN: Soft, nontender. No hepatosplenomegaly, normal bowel sounds, no guarding or rigidity. EXTREMITIES: No clubbing, no edema, no cyanosis, 2+ pulses and upper and lower extremities. MUSCULOSKELETAL: Muscle strength and tone normal. SPINE: No scoliosis or deformity SKIN: No rashes CENTRAL NERVOUS SYSTEM: Alert and oriented -1. Confused, No focal deficits, tone is normal in all 4 extremities. - Labs CBC & Chem 7: 03/05/20 15:08 03/05/20 15:08 Labs: Microbiology - Last 24 Hours (Table) 03/05/20 15:08 Blood Culture - Preliminary Blood No Growth after 24 hours Assessment and Plan Plan: Assessment: #1. Dyspnea, possibly related to mild bronchitis, possibility of community acquired pneumonia was ruled out on the basis of negative pro-calcitonin. COVID 19 ruled out #2. Advanced dementia, recently progressed #3. Hyperlipidemia #4. Difficulty hearing #5. Hypothyroidism #6. Never smoker #7. Osteoarthritis Plan: Patient has remained stable overnight, COVID 19 PCR was negative, pro-calcitonin was negative at 0.02, clinically stable, afebrile, no acute events overnight, lung sounds are clear, from pulmonary perspective patient can be considered for discharge back to the [facility] home, when medically clear. I performed a history & physical examination of the patient and discussed their management with my nurse practitioner, Nora Rodriguez. I reviewed the nurse practitioner's note and agree with the documented findings and plan of care. Lung sounds are positive for diminished and clear breath sounds. The findings and the impression was discussed with the patient. I attest to the documentation by the nurse practitioner. Time with Patient: Less than 30
--- NOTE | 2020-03-07 12:35 | P.DS ---
Providers Date of admission: 03/05/20 16:50 Expected date of discharge: 03/07/20 Attending physician: Edgardo Gonzalez Consults: 03/05/20 17:12 Consult Physician Stat Consulting Provider: Chelo Moss Consult Reason/Comments: pneumonia Do you want consulting provider notified?: Yes Primary care physician: Nick Brown [facility] Course: HISTORY OF PRESENT ILLNESS 80-year-old female one of Dr. Ford patient with past medical history of worsening dementia, hyperlipidemia and hypothyroidism or currently has been living in [facility] with assisted living place developed to have worsening cough and worsening shortness of breath for the last 2 weeks with low-grade temperature and chills. Patient had virtual visit with Dr. Brown today and the conclusion was to go to emergency department because of hypoxia and symptom are not improving with outpatient treatment. Patient ended up coming to the emergency department at [facility] her chest x-ray showed left lower lobe pneumonia, patient pulse ox was reasonable continue having significant shortness of breath with inspiratory expiratory wheezes started on O2 along with updraft treatment and IV antibiotics patient will be admitted to the hospital. 03/06: Patient has been afebrile, heart rate 55, blood pressure 105/60, pulse ox 93% on room air. Covid 19 testing in progress. Blood culture is status rec eived, sputum culture unable to be obtained. Patient is continued on IV antibiotics and nebulizer treatments. Repeat chest x-ray has been completed by report is pending. Consult is in place with pulmonary medicine. Patient is in a very good mood today which is her baseline. She states she is feeling better from yesterday. She states she slept well last night. 03/07: Patient denies any new complaints. Repeat chest x-ray reveals correlate for lingular atelectasis or pneumonia. Patient has been afebrile, heart rate 47-50, blood pressure 152/74, pulse ox 95% on room air. Probable stone at 0.02. Blood sugar 85.COVID-19 negative. Patient will be discharged home today in stable condition. ASSESSMENT AND PLAN 1 severe dyspnea and shortness of breath with mild respiratory distress without acute respiratory failure secondary to pneumonia. 2 left lower lobe pneumonia. 3 reactive airway with significant wheezes 4 dementia 5 Hypothyroidism 6 recurrent depression 7 hypertension 8 mild behavioral problem with depression DISCHARGE PLAN Home to [facility] Impression and plan of care have been directed as dictated by the signing physician. Rose Marie Card nurse practitioner acting as scribe for signing physician. Patient Condition at Discharge: Good Plan - Discharge Summary Discharge Rx Participant: No New Discharge Prescriptions: New Azithromycin [Zithromax] 250 mg PO DAILY #5 tab Continue FLUoxetine HCL 40 mg PO DAILY@0800 Donepezil [Aricept] 10 mg PO HS@1999 Loperamide HCl [Imodium A-D] 2 - 4 mg PO QID PRN PRN Reason: Diarrhea guaiFENesin-DM 100-10MG/5ML [Robitussin DM] 10 ml PO Q4H PRN PRN Reason: Cough/Congestion [place] Carbonate 300mg Tablet 300 mg PO DAILY@0800 Levothyroxine Sodium 112 mcg PO DAILY@0800 Aspirin EC [Ecotrin] 325 mg PO DAILY@0800 Changed Metoprolol Tartrate [Lopressor] 12.5 mg PO BID@ #0 Discharge Medication List FLUoxetine HCL 40 mg PO DAILY@0800 10/14/14 [History] Donepezil [Aricept] 10 mg PO HS@199911/04/16 [History] Loperamide HCl [Imodium A-D] 2 - 4 mg PO QID PRN 06/20/18 [History] guaiFENesin-DM 100-10MG/5ML [Robitussin DM] 10 ml PO Q4H PRN 06/20/18 [History] Aspirin EC [Ecotrin] 325 mg PO DAILY@0800 03/05/20 [History] Levothyroxine Sodium 112 mcg PO DAILY@0800 03/05/20 [History] [place] Carbonate 300mg Tablet 300 mg PO DAILY@0803/05/20 [History] Azithromycin [Zithromax] 250 mg PO DAILY #5 tab 03/07/20 [Rx] Metoprolol Tartrate [Lopressor] 12.5 mg PO BID@ #0 03/07/20 [Rx] Follow up Appointment(s)/Referral(s): Nick Brown MD [Primary Care Provider] - 1 Week (Office closed at time of discharge please call TuesdayMarch 10 to set up a follow up appointment) Discharge Disposition: HOME SELF-CARE
== END 2020-03-07 13:09 | disposition home or self-care (01) | DRG 194 ==
LOC: EC 14:15 → 4SSUR 16:50
PROVIDERS: ADMIT Internal Medicine Geriatric Medicine; ATTEND Internal Medicine Geriatric Medicine
DX: J18.9 Pneumonia, unspecified organism (principal); F03.91 Unspecified dementia, unspecified severity, with behavioral disturbance; F33.9 Major depressive disorder, recurrent, unspecified; H91.90 Unspecified hearing loss, unspecified ear; I10 Essential (primary) hypertension; M19.90 Unspecified osteoarthritis, unspecified site; R09.02 Hypoxemia; Z20.828 Contact with and (suspected) exposure to other viral communicable diseases; Z79.82 Long term (current) use of aspirin; Z79.890 Hormone replacement therapy; Z79.899 Other long term (current) drug therapy; Z87.891 Personal history of nicotine dependence; E03.9 Hypothyroidism, unspecified; E78.5 Hyperlipidemia, unspecified; Z90.721 Acquired absence of ovaries, unilateral; R32 Unspecified urinary incontinence; Z96.659 Presence of unspecified artificial knee joint
CPT/HCPCS: 36415; 71046; 80053; 83605; 83735; 84145; 84484; 85025; 85610; 85730; 87040; 93005; 94640; 96361; 96365; 96375; 99285

== ENCOUNTER 2020-10-21 04:43 | Emergency (ER) | payer MEDICARE, BC ==
[2020-10-21 05:05] VITALS: TEMP 97.2
--- NOTE | 2020-10-21 05:33 | ED ---
Fall HPI - General Chief Complaint: Fall Stated Complaint: Fall Time Seen by Provider: 10/21/20 04:46 Source: patient, EMS Mode of arrival: EMS - Related Data Home Medications Medication Instructions Recorded Confirmed FLUoxetine HCL 40 mg PO DAILY@0800 10/14/14 03/05/20 Donepezil [Aricept] 10 mg PO HS@199911/04/16 03/05/20 Loperamide HCl [Imodium A-D] 2 - 4 mg PO QID PRN 06/20/18 03/05/20 guaiFENesin-DM 100-10MG/5ML 10 ml PO Q4H PRN 06/20/18 03/05/20 [Robitussin DM] Aspirin EC [Ecotrin] 325 mg PO DAILY@0803/05/20 03/05/20 Levothyroxine Sodium 112 mcg PO DAILY@0800 03/05/20 03/05/20 [place] Carbonate 300mg Tablet 300 mg PO DAILY@0800 03/05/20 03/05/20 Previous Rx's Medication Instructions Recorded Azithromycin [Zithromax] 250 mg PO DAILY #5 tab 03/07/20 Metoprolol Tartrate [Lopressor] 12.5 mg PO BID@799,1999 #0 03/07/20 Allergies Allergy/AdvReac Type Severity Reaction Status Date / Time nickel Allergy Rash/Hives Verified 10/21/20 05:06 Review of Systems ROS Statement: Those systems with pertinent positive or pertinent negative responses have been documented in the HPI. ROS Other: All systems not noted in ROS Statement are negative. Past Medical History Past Medical History: Dementia, Hyperlipidemia, Thyroid Disorder History of Any Multi-Drug Resistant Organisms: None Reported Past Surgical History: Back Surgery, Joint Replacement Additional Past Surgical History / Comment(s): knee replacment, ovary removed Past Anesthesia/Blood Transfusion Reactions: No Reported Reaction Past Psychological History: Bipolar Smoking Status: Former smoker Past Alcohol Use History: None Reported Past Drug Use History: None Reported - Past Family History Mother History Unknown: Yes Additional Family Medical History / Comment(s): Unable to provide any family history due to severe dementia. States her mother is still living but donot quote her on that General Exam Limitations: no limitations Course Vital Signs 10/21/20 04:47 Temperature 97.2 F L Pulse Rate 62 Respiratory 18 Rate Blood Pressure 145/70 O2 Sat by Pulse 93 L Oximetry Disposition Clinical Impression: Fall, Weakness, Nasal fracture Disposition: HOME SELF-CARE Condition: Good Instructions (If sedation given, give patient instructions): Fall Prevention for Older Adults (ED), Nasal Fracture (ED) Is patient prescribed a controlled substance at d/c from ED?: No Referrals: Nick Brown MD [Primary Care Provider] - 1-2 days
--- NOTE | 2020-10-21 05:49 | XR ---
ADDENDUM - Added by Keith Penaloza MD on 10/21/2020 5:50 AM (-04:00) EXAM: XR Pelvis, 1 or 2 Views CLINICAL HISTORY: ITS.REASON XR Reason: fall TECHNIQUE: Frontal view of the pelvis. COMPARISON: No relevant prior studies available. FINDINGS/IMPRESSION: Posterior lumbosacral fusion. The bilateral superior and inferior pubic rami are intact. No hip fracture. Correlate with CT scan, if clinically indicated or continue concern for pelvic or hip fracture. EXAM: XR Pelvis, 1 or 2 Views CLINICAL HISTORY: ITS.REASON XR Reason: fall TECHNIQUE: Frontal view of the pelvis. COMPARISON: No relevant prior studies available. FINDINGS/IMPRESSION: Elevated right hemidiaphragm. No focal infiltrate. Left base atelectasis. No pneumothorax. Cardiomegaly. Calcified aorta. <MYCVCSECTION> Communications: 10/21/20 06:01 Verify Receipt Verified receipt with SHANT Borjas in ER for Dr. Coffman on 10/21 06:00 (-04:00)
--- NOTE | 2020-10-21 05:49 | XR ---
EXAM: XR Chest, 1 View CLINICAL HISTORY: ITS.REASON XR Reason: fall TECHNIQUE: Frontal view of the chest. COMPARISON: No relevant prior studies available. FINDINGS/IMPRESSION: Elevated right hemidiaphragm. No focal infiltrate. Left base atelectasis. No pneumothorax. Cardiomegaly. Calcified aorta.
--- NOTE | 2020-10-21 05:56 | CT ---
EXAM: CT Head Without Intravenous Contrast CLINICAL HISTORY: ITS.REASON CT Reason: fall TECHNIQUE: Axial computed tomography images of the head/brain without intravenous contrast. CTDI is 25.8 mGy and DLP is 691.7 mGy-cm. This CT exam was performed using one or more of the following dose reduction techniques: automated exposure control, adjustment of the mA and/or kV according to patient size, and/or use of iterative reconstruction technique. COMPARISON: No relevant prior studies available. FINDINGS: No acute intracranial hemorrhage. No midline shift or mass effect. The territorial vargas-white matter differentiation is maintained throughout. Age-related cerebral volume loss. Periventricular and subcortical white matter hypoattenuation, consistent with chronic microangiopathy. The visualized orbits appear grossly unremarkable. The calvarium is intact. Right frontal scalp hematoma. Nasal bone fracture with overlying soft tissue swelling. Correlate with maxillofacial CT scan. IMPRESSION: No acute intracranial hemorrhage, midline shift, or mass effect. Nasal bone fracture with overlying soft tissue swelling. Correlate with maxillofacial CT scan. Right frontal scalp hematoma. EXAM: CT Cervical Spine Without Intravenous Contrast CLINICAL HISTORY: ITS.REASON CT Reason: fall TECHNIQUE: Axial computed tomography images of the cervical spine without intravenous contrast. CTDI is 10.6 mGy and DLP is 327.5 mGy-cm. This CT exam was performed using one or more of the following dose reduction techniques: automated exposure control, adjustment of the mA and/or kV according to patient size, and/or use of iterative reconstruction technique. COMPARISON: No relevant prior studies available. FINDINGS: The vertebral body heights are maintained. The craniocervical junction is intact. The atlanto-dens interval is maintained. The dens is intact. Multilevel cervical spondylosis and degenerative disc disease. Multilevel low-grade spinal canal stenosis. Multilevel bilateral foraminal stenosis. 2 mm of grade 1 anterolisthesis of C3 on C4 and 3 mm of grade 1 anterolisthesis of C4 on C5. 2 mm of grade 1 anterolisthesis of T2 on T3. The unenhanced neck soft tissues are grossly unremarkable. The visualized lung apices are grossly clear. IMPRESSION: No cervical spine fracture. Multilevel cervical spondylosis
--- NOTE | 2020-10-21 06:10 | CT ---
EXAM: CT Maxillofacial Without Intravenous Contrast CLINICAL HISTORY: ITS.REASON CT Reason: fall TECHNIQUE: Axial computed tomography images of the face without intravenous contrast. CTDI is 0.17 mGy and DLP is 7 mGy-cm. This CT exam was performed using one or more of the following dose reduction techniques: automated exposure control, adjustment of the mA and/or kV according to patient size, and/or use of iterative reconstruction technique. COMPARISON: No relevant prior studies available. FINDINGS: Fracture at the base of the right nasal bone which is depressed by approximately 1 mm. Additionally, there is fracture of the nasal septum, superiorly on coronal images. The maxillary spine is intact. Moderate overlying right side of the nasal soft tissue swelling with subcutaneous air and skin irregularity, correlate for small abrasion/laceration. Associated, hemorrhage within the nasal passages and oropharynx, right greater than left. The orbits, including the inferior orbital thibodeaux are intact. Intact zygomatic arches and pterygoid processes. Intact maxillary alveolus and mandible. Severe degenerative changes of the bilateral temporomandibular joints. IMPRESSION: Fracture at the base of the right nasal bone which is depressed by approximately 1 mm. Fracture of the nasal septum, superiorly on coronal images. The maxillary spine is intact. Moderate overlying right side of the nasal soft tissue swelling with subcutaneous air and skin irregularity, correlate for small abrasion/laceration. Hemorrhage within the nasal passages and oropharynx, right greater than left.
[2020-10-21 06:32] VITALS: BP 156/84; PULSE 64; RESP 16
== END 2020-10-21 06:50 | disposition home or self-care (01) ==
LOC: EC 04:43
DX: S02.2XXA Fracture of nasal bones, initial encounter for closed fracture (principal); R53.1 Weakness; E78.5 Hyperlipidemia, unspecified; E07.9 Disorder of thyroid, unspecified; F03.90 Unspecified dementia, unspecified severity, without behavioral disturbance, psychotic disturbance, mood disturbance, and anxiety; Z87.891 Personal history of nicotine dependence; W19.XXXA Unspecified fall, initial encounter; Z79.82 Long term (current) use of aspirin
CPT/HCPCS: 70450; 70486; 71045; 72125; 72170; 99284